=== PATIENT | male | born 1970 | race Caucasian/White ===

== ENCOUNTER 2020-06-16 12:48 | Outpatient (CLI) | payer OTHER, SELFPAY ==
--- NOTE | 2020-06-17 15:00 | NEURO_ITS ---
Patient Number: [id number] Impression: # Complains of numbness of hands. # Bilateral Carpal Tunnel Syndrome, right more than left. # Left ulnar neuropathy across the elbow. # Needle/EMG exam mildly neurogenic in left 1st DI. # Clinical correlation recommended Nerve Conduction Studies Anti Sensory Summary Table Stim Site NR Peak (ms) P-T Amp (?V) Site1 Site2 Delta-P (ms) Dist (cm) Ajay (m/s) Left Median Anti Sensory (2-3nd Digit) Wrist 3.5 47.0 Wrist 2-3nd Digit 3.5 14.0 40 Wrist 3.3 50.0 Wrist 2-3nd Digit 3.5 14.0 40 Right Median Anti Sensory (2-3nd Digit) Wrist 4.0 19.2 Wrist 2-3nd Digit 4.0 14.0 35 Wrist 4.2 30.4 Wrist 2-3nd Digit 4.0 14.0 35 Left Radial Anti Sensory (Base 1st Digit) Wrist 2.2 21.5 Wrist Base 1st Digit 2.2 0.0 Right Radial Anti Sensory (Base 1st Digit) Wrist 2.2 9.6 Wrist Base 1st Digit 2.2 0.0 Left Ulnar Anti Sensory (5th Digit) Wrist 3.1 59.8 Wrist 5th Digit 3.1 14.0 45 Right Ulnar Anti Sensory (5th Digit) Wrist 2.6 51.5 Wrist 5th Digit 2.6 14.0 54 Motor Summary Table Stim Site NR Onset (ms) O-P Amp (mV) Site1 Site2 Delta-0 (ms) Dist (cm) Ajay (m/s) Left Median Motor (Abd Poll Brev) Wrist 4.1 3.8 Elbow Wrist 5.3 30.0 57 Elbow 9.4 6.8 Right Median Motor (Abd Poll Brev) Wrist 4.8 1.8 Elbow Wrist 4.6 29.0 63 Elbow 9.4 2.1 Left Ulnar Motor (Abd Dig Minimi) Wrist 2.6 7.5 A Elbow Wrist 6.2 30.0 48 A Elbow 8.8 6.1 B Elbow Wrist 4.0 23.0 58 B Elbow 6.6 5.7 Right Ulnar Motor (Abd Dig Minimi) Wrist 2.7 5.6 A Elbow Wrist 5.1 30.0 59 A Elbow 7.8 3.8 F Wave Studies NR F-Lat (ms) L-R F-Lat (ms) Left Median (Mrkrs) (Abd Poll Brev) 30.27 0.44 Right Median (Mrkrs) (Abd Poll Brev) 29.82 0.44 Left Ulnar (Mrkrs) (Abd Dig Min) 29.69 1.29 Right Ulnar (Mrkrs) (Abd Dig Min) 28.41 1.29 EMG Side Muscle Nerve Root Ins Act Fibs Amp Dur Recrt Comment Right 1stDorInt Ulnar C8-T1 Nml Nml Nml Nml Nml Right Ext Indicis Radial (Post Int) C7-8 Nml Nml Nml Nml Nml Right Ext Digitorum Radial (Post Int) C7-8 Nml Nml Nml Nml Nml Right BrachioRad Radial C5-6 Nml Nml Nml Nml Nml Right PronatorTeres Median C6-7 Nml Nml Nml Nml Nml Right Abd Poll Brev Median C8-T1 Nml Nml Nml Nml Nml Left 1stDorInt Ulnar C8-T1 Nml Nml Nml >12ms Reduced Left Ext Indicis Radial (Post Int) C7-8 Nml Nml Nml Nml Nml Left Ext Digitorum Radial (Post Int) C7-8 Nml Nml Nml Nml Nml Left BrachioRad Radial C5-6 Nml Nml Nml Nml Nml Left PronatorTeres Median C6-7 Nml Nml Nml Nml Nml Left Abd Poll Brev Median C8-T1 Nml Nml Nml Nml Nml Right ABD Dig Min Ulnar C8-T1 Nml Nml Nml Nml Nml Right [place]coneus Radial C7-8 Nml Nml Nml Nml Nml Left ABD Dig Min Ulnar C8-T1 Nml Nml Nml Nml Nml Left Anconeus Radial C7-8 Nml Nml Nml Nml Nml MTDD
== END 2020-06-16 12:49 | disposition home or self-care (01) ==
PROVIDERS: PCP Internal Medicine; Visit Provider Internal Medicine
DX: G56.03 Carpal tunnel syndrome, bilateral upper limbs (principal); G56.22 Lesion of ulnar nerve, left upper limb
CPT/HCPCS: 95886; 95911

== ENCOUNTER 2022-07-13 16:25 | Outpatient (CLI) | payer OTHER, SELFPAY ==
--- NOTE | ~2022-07-13 | CT_ITS ---
EXAMINATION: CT brain wo con DATE: 07/13/2022 16:48 INDICATION: Headache and dizziness TECHNIQUE: Computed tomography (CT) of the head was performed without intravenous contrast. Sagittal and coronal reconstructions were performed. The mA was adjusted according to patient size. Iterative reconstruction technique was employed. The dose-length product was 605.33 mGy-cm. COMPARISON: None FINDINGS: No acute intracranial hemorrhage, acute infarction or abnormal extra axial fluid collection. Ventricl es are normal and symmetric. No mass/mass effect. Mucosal thickening the bilateral ethmoid sinuses. T he orbits and mastoid air cells are normal. IMPRESSION: 1. Normal brain. No acute intracranial process. Reviewed, dictated and finalized at location A.
== END 2022-07-13 16:26 | disposition home or self-care (01) ==
PROVIDERS: PCP Internal Medicine; Visit Provider Internal Medicine
DX: R51.9 Headache, unspecified (principal)
CPT/HCPCS: 70450

== ENCOUNTER 2024-09-21 00:04 | Day surgery (SDC) | payer OTHER, SELFPAY ==
[2024-09-14 10:54] VITALS: BMI 21.5
[2024-09-21 07:00] VITALS: BP 143/85; PULSE 81; RESP 20; TEMP 36.1; O2SAT 100; BMI 22.4
[2024-09-21] MEDS: LACTATED RINGERS 1,000 ML 150 ML IV CONT (07:02)
--- NOTE | 2024-09-21 07:46 | P.PNAN_ITS ---
Anes - Initial Pre Proc Eval Procedure: Operation Date: 09/21/24 08:00 Proposed Procedures p Esophagogastroduodenoscopy & Colonoscopy - David Pate MD Date/Time: 09/21/24 07:46 Surgeon: David Pate MD Pre Op Diagnosis: Family hx. of colon CA Patient Data Age: 54 Gender: M Height: 1.8 m Weight: 73.1 kg Last Vital Signs Temp 36.1 C L 09/21/24 07:00 Pulse 81 09/21/24 07:00 Resp 20 09/21/24 07:00 BP 143/85 H 09/21/24 07:00 Pulse Ox 100 09/21/24 07:00 O2 Del Method Room Air 09/21/24 07:00 Allergies Allergy/AdvReac Type Severity Reaction Status Date / Time No Known Allergies Allergy Verified 09/21/24 06:58 Home Medications Medication Instructions Recorded Confirmed Type propranolol 20 mg tablet 20 mg PO BID 09/14/24 09/21/24 History Patient hx anesthesia problems: none Family hx anesthesia problems: none Results Review: All pre-operative results and documents have been reviewed as part of the pre- operative evaluation. [facility] Social History Social History Smoking packs per day: 1 Smoking cigarettes per day: 20.0 Smoking status: Current every day smoker Tobacco type: cigarettes Alcohol intake: current Living arrangements: alone Spiritual care concerns: No Anes - Eval Final PreProcedure Day of Procedure 09/21/24 07:46 Patient weight: normal Heart: regular rate and rhythm Lungs: clear to auscultation and normal air movement Airway: Mallampati scale class II Neurological: alert and oriented Last oral intake: >/= 8 hours ASA classification: II Emergent: no Anesthetic plan: proceed Anesthesia type and monitoring: general GIVS and standard monitoring Results Review: All pre-operative results and documents have been reviewed as part of the pre- operative evaluation. Informed Consent: The patient's anesthetic plan and its attendant risks and benefits were discussed with the patient/family/POA. Questions were solicited and answers provided to the satisfaction of the patient/family/POA.
--- NOTE | 2024-09-21 07:52 | PM.HPGS ---
History of Present Illness History of Present Illness Consent: Risks, benefits, and alternatives have been discussed and questions answered. Patient agrees to proceed with procedure. Chief complaint: Family hx. of colon CA Narrative: Isai Hunt is a 54 year old male with colon polyp 5 years ago, also mother had stomach cancer, he had egd 5 years ago, denies active upper gi symptoms. Review of Systems Review of Systems: All systems reviewed & are unremarkable except as noted in HPI and below PMFSH Past Medical History Medical History (Updated 09/21/24 @ 07:53 by David Pate MD) Colon polyp Family history of stomach cancer Social History Social History Smoking packs per day: 1 Smoking cigarettes per day: 20.0 Smoking status: Current every day smoker Tobacco type: cigarettes Alcohol intake: current Living arrangements: alone Spiritual care concerns: No Meds Home Medications and Allergies Home Medications Medication Instructions Recorded Confirmed Type propranolol 20 mg tablet 20 mg PO BID 09/14/24 09/21/24 History Allergies Allergy/AdvReac Type Severity Reaction Status Date / Time No Known Allergies Allergy Verified 09/21/24 06:58 Vital Signs Vital Signs - 24 hr 09/21/24 07:00 Temperature 96.9 F L Pulse Rate 81 Respiratory Rate 20 Blood Pressure 143/85 H Pulse Oximetry 100 Oxygen Delivery Room Air Exam Const: General: comfortable and no acute distress HENMT: Face/Nose/Sinus: Normal nares present Eyes: General: appearance normal, both eyes and all related structures Neck: Neck: no JVD Resp: Auscultation: clear to auscultation bilaterally Cardio: Rate: regular rate Rhythm: regular rhythm GI: Inspection: non-distended GI Palp: Yes Soft to palpation Skin: General skin exam: normal color Neuro: General: gait normal Speech: normal speech Extrem: General: normal to inspection Psych: Mental Status: mental status grossly normal Assessment and Plan Assessment and plan (1) Family history of stomach cancer: Code(s): Z80.0 - Family history of malignant neoplasm of digestive organs Status: Acute Assessment and Plan: egd with bx (2) Colon polyp: Code(s): K63.5 - Polyp of colon Status: Acute Assessment and Plan: colonoscopy
[2024-09-21] MEDS: BENZOCAINE (*SP) 60 ML SPRAY CAN (HURRICAINE) 1 SPRAY MUCOUS MEM (07:53)
--- NOTE | 2024-09-21 08:02 | SUR.OPER ---
EGD start 075 end 075, Colonoscopy start 08
[2024-09-21 08:14] VITALS: BP 101/70; PULSE 65; RESP 17; O2SAT 98
[2024-09-21 08:24] VITALS: BP 109/71; PULSE 74; RESP 18; O2SAT 99
[2024-09-21 08:34] VITALS: BP 127/90; PULSE 70; RESP 15; O2SAT 100
== END 2024-09-21 08:41 | disposition home or self-care (01) ==
PROVIDERS: PCP Internal Medicine; Visit Provider Internal Medicine Gastroenterology
PROC: 0DJ08ZZ Inspection of Upper Intestinal Tract, Via Natural or Artificial Opening Endoscopic (ICD-10-PCS; CPT 43235; principal; 2024-09-21 08:00)
DX: Z12.11 Encounter for screening for malignant neoplasm of colon (principal); D12.5 Benign neoplasm of sigmoid colon; K64.8 Other hemorrhoids; K57.30 Diverticulosis of large intestine without perforation or abscess without bleeding; K29.50 Unspecified chronic gastritis without bleeding; F17.210 Nicotine dependence, cigarettes, uncomplicated; Z80.0 Family history of malignant neoplasm of digestive organs
CPT/HCPCS: 43239; 45385; 88305; J2003; J2704; J7120

== ENCOUNTER 2025-03-21 18:23 | Emergency (ER) | payer OTHER, SELFPAY ==
--- NOTE | ~2025-03-21 | XR_ITS ---
EXAMINATION: XR chest 2V Exam Date/Time: 03/21/2025 18:30 CDT HISTORY: cp Comparison: None. RESULT: Lines, tubes, and devices: None. Lungs and pleura: Mild biapical pleural scarring. Possible suture line at the right apex with small adjacent bulla. Elevation of the minor fissure and right hilum. No focal consolidation, pleural effus ion, or pneumothorax. Cardiomediastinal silhouette: Unremarkable. Other: No acute osseous or upper abdominal finding. IMPRESSION: No acute cardiopulmonary process. Reviewed, dictated and finalized at location K.
--- NOTE | 2025-03-21 18:24 | ECG_ITS ---
Test Date: 2025-03-21 18:28:35 Measurements Intervals [place] Rate: 81 P: 57 DC: 163 QRS: -9 QRSD: 105 T: 40 QT: 379 QTc: 442 Interpretive Statements SINUS RHYTHM POSSIBLE LEFT ATRIAL ENLARGEMENT [-0.1mV P-WAVE IN V1/V2] LOW QRS VOLTAGE IN PRECORDIAL LEADS [QRS DEFLECTION < 1.0 mV IN CHEST LEADS] INCOMPLETE RIGHT BUNDLE BRANCH BLOCK [90+ ms QRS DURATION, TERMINAL R IN V1/V2, 40+ ms S IN I/aVL/V4/V5/V6] MINIMAL ST DEPRESSION [0.025+ mV ST DEPRESSION] No previous ECG available for comparison Electronically Signed On 03-22-2025 06:54:15 CDT by Izzy Suarez M.D.
--- OUTSIDE RECORDS SUMMARY | 2025-03-21 18:24 | XMS_ITS | Data Portability ---
Author Organization [place] - [facility] [employer], Main Office Address [address] [place] [address] Care Team Providers Care Jet Aircraft Servicer Name Role Phone GAUTAM WEAVER Primary Care Provider Assessment No assessment recorded. Plan of Treatment Reminders Order Date Submit Date Provider Last Modified By Organization Details Last Modified Time Details Appointments None recorded. Lab magnesium , serum or plasma 024 024 [id number] [facility] - Outpatient Lab, [address] [place], [address], 4 09:42:28 vitamin B12, serum 024 024 [email or web address] [facility] Outpatient Lab, [address] [place], [address], 4 09:42:28 PSA, serum or plasma 024 024 [email or web address] [facility] - Outpatient Lab, [address] [place], [address], 4 09:42:28 CMP, serum or plasma 024 024 [email or web address] [facility] Outpatient Lab, [address] [place], [address], 4 09:42:27 CBC w/ auto diff 024 024 [id number] [facility] - Outpatient Lab, [address] [place], [address], 4 09:42:28 lipid panel, serum [id number] [place] [address] - Outpatient Lab, [address] [place], [address], 09:42:28 Referral None recorded. Procedures None recorded. Surgeries None recorded. Imaging None recorded. Medication Orders None recorded. Patient TargetsNo targets recorded. Patient Instructions Encounter Date Encounter Id Patient Instructions Last Modified By Organization Details Last Modified Time 03/30/2024 [id number] risk assessment* [email or web address] Not availabl e 03/30/2024 17:22:56 INFLUENZA VACCIN E Recommended today, but patient declined Ordered P atient will get at local pharmacy/health department TD/TDAP Recommended today, patient declined Ordered P atient will get at local pharmacy/health department PNEUMONIA VACCINE Ordered Recommende d today, patient declined Patient will get at local pharmacy/health department Recomme nded at age 65 SHINGLES Ordered Recommende d today, patient declined Patient will get at local pharmacy/health department PSA COLORECTAL SCREENING DEPRESSION SCREENING Negative BMI Overweight Appropr iate NUTRITION PHYSICAL ACTIVITY Need more exercise/physical activity ALCOHOL USE No alcohol use Occasional/Soc ial Use TOBACCO USE LUNG CANCER SCREENING SEXUALLY ACTIVE HEPATITIS C SCREENING Not indicated GLUCOSE SCREENING LIPID SCREENING [email or web address] Not available 03/30/2024 17:16:48 Well patient evaluation risk assessment stable. Follow-up for GERD clinically doing well on the omeprazole. Will check blood work consisting of CBC, CMP, lipid, B12, magnesium level and PSA. Does need a colonoscopy since there is a family history of some form of gastric cancer in the family mother of some form of gastric cancer. Will continue on current Rx and follow-up in one year. Colonoscopy for family history of gastric cancer Next Appointment: 1 Year Approximate Date: 03/30/2025 Portions of the record may have been created with voice recognition software. Occasional wrong-word or s ound-a-like substitutions may have occurred due to the inherent limitations of voice recognition software. Read the chart carefully and recognize, using context, where substitutions have occurred. [email or web address] Not available 03/30/2024 17:22:37 Reason for Referral None Reported. Results Created Date Observation Date Name Description Value Unit Range Abnormal Flag Note LastModifiedBy Organization Detail LastModifiedTime 04/23/20 24 04/23/2024 CBC/C OMPLE TE BLD COUNT W/DIF F white blood cells 7.6 x10'3 /uL 4.2-10 .8 Not Available [facility] (Lab) [address] [place], [address], 04/23/2024 10:18:40 04/23/20 24 04/23/2024 CBC/C OMPLE TE BLD COUNT W/DIF F red blood cells 4.59 x10'6 /uL 4.10-5 .80 Not Available [facility] (Lab) [address] [place], [address], 04/23/2024 10:18:40 04/23/20 24 04/23/2024 CBC/C OMPLE TE BLD COUNT W/DIF F hemoglobin 15.8 g/dL 13.2-1 7.0 Not Available [facility] (Lab) [address] [place], [address], 04/23/2024 10:18:40 04/23/20 24 04/23/2024 CBC/C OMPLE TE BLD COUNT W/DIF F hematocrit 44.8 % 39.3-5 0.0 Not Available [facility] (Lab) [address] [place], [address], 04/23/2024 10:18:40 04/23/20 24 04/23/2024 CBC/C OMPLE TE BLD COUNT W/DIF F mean red cell volume 97.6 fL 80.0-9 7.0 high Not Available [facility] (Lab) [address] [place], [address], 04/23/2024 10:18:40 04/23/20 24 04/23/2024 CBC/C OMPLE TE BLD COUNT W/DIF F mean red cell hemoglobin 34.4 pg 27.0-3 3.0 high Not Available [facility] (Lab) [address] [place], [address], 04/23/2024 10:18:40 04/23/20 24 04/23/2024 CBC/C OMPLE TE BLD COUNT W/DIF F mean RBC HGB concentratio n 35.3 g/dL 31.0-3 6.0 Not Available [facility] (Lab) [address] [place], [address], 04/23/2024 10:18:40 04/23/20 24 04/23/2024 CBC/C OMPLE TE BLD COUNT W/DIF F red cell distribution width 13.3 % 11.8-1 5.5 Not Available [facility] (Lab) [address] [place], [address], 04/23/2024 10:18:40 04/23/20 24 04/23/2024 CBC/C OMPLE TE BLD COUNT W/DIF F platelets 240 x10'3 /uL 150-40 0 Not Available [facility] (Lab) [address] [place], [address], 04/23/2024 10:18:40 04/23/20 24 04/23/2024 CBC/C OMPLE TE BLD COUNT W/DIF F mean platelet volume 10.4 fL 9.0-12 .4 Not Available [facility] (Lab) [address] [place], [address], 04/23/2024 10:18:40 04/23/20 24 04/23/2024 CBC/C OMPLE TE BLD COUNT W/DIF F neutrophils 65.9 % 39.0-7 2.0 Not Available [facility] (Lab) [address] [place], [address], 04/23/2024 10:18:40 04/23/20 24 04/23/2024 CBC/C OMPLE TE BLD COUNT W/DIF F lymphocytes 19.3 % 16.0-4 7.0 Not Available [facility] (Lab) [address] [place], [address], 04/23/2024 10:18:40 04/23/20 24 04/23/2024 CBC/C OMPLE TE BLD COUNT W/DIF F monocytes 10.0 % 5.0-12 .0 Not Available [facility] (Lab) [address] [place], [address], 04/23/2024 10:18:40 04/23/20 24 04/23/2024 CBC/C OMPLE TE BLD COUNT W/DIF F eosinophils 3.2 % 1.0-7. 0 Not Available [facility] (Lab) [address] [place], [address], 04/23/2024 10:18:40 04/23/20 24 04/23/2024 CBC/C OMPLE TE BLD COUNT W/DIF F basophils 0.9 % 0.0-2. 0 Not Available [facility] (Lab) [address] [place], [address], 04/23/2024 10:18:40 04/23/20 24 04/23/2024 CBC/C OMPLE TE BLD COUNT W/DIF F immature granulocytes 0.7 % 0.00-0 .50 high Not Available [facility] (Lab) [address] [place], [address], 04/23/2024 10:18:40 04/23/20 24 04/23/2024 CBC/C OMPLE TE BLD COUNT W/DIF F neutrophils, absolute count 4.99 x10'3 /uL 1.5-8. 0 Not Available [facility] (Lab) [address] [place], [address], 04/23/2024 10:18:40 04/23/20 24 04/23/2024 CBC/C OMPLE TE BLD COUNT W/DIF F lymphocytes, absolute count 1.46 x10'3 /uL 1.07-3 .43 Not Available [facility] (Lab) [address] [place], [address], 04/23/2024 10:18:40 04/23/20 24 04/23/2024 CBC/C OMPLE TE BLD COUNT W/DIF F monocytes, absolute count 0.76 x10'3 /uL 0.29-0 .99 Not Available [facility] (Lab) [address] [place], [address], 04/23/2024 10:18:40 04/23/20 24 04/23/2024 CBC/C OMPLE TE BLD COUNT W/DIF F eosinophils, absolute count 0.24 x10'3 /uL 0.02-0 .53 Not Available [facility] (Lab) [address] [place], [address], 04/23/2024 10:18:40 04/23/20 24 04/23/2024 CBC/C OMPLE TE BLD COUNT W/DIF F basophils, absolute count 0.07 x10'3 /uL 0.01-0 .08 Not Available [facility] (Lab) [address] [place], [address], 04/23/2024 10:18:40 04/23/20 24 04/23/2024 CBC/C OMPLE TE BLD COUNT W/DIF F immature granulocytes ,absolute 0.05 x10'3 /uL 0.00-0 .05 Not Available [facility] (Lab) [address] [place], [address], 04/23/2024 10:18:40 04/23/20 24 04/23/2024 CBC/C OMPLE TE BLD COUNT W/DIF F nucleated red blood cells 0.0 % -0 Not Available [facility] (Lab) [address] [place], [address], 04/23/2024 10:18:40 04/23/20 24 04/23/2024 CBC/C OMPLE TE BLD COUNT W/DIF F NRBC# 0.00 x10'3 /uL Not Available [facility] (Lab) [address] [place], [address], 04/23/2024 10:18:40 04/23/20 24 04/23/2024 COMPR EHENS BLAYNE METAB OLIC PANEL sodium 138 mmol/ L 137-14 5 Not Available [facility] (Lab) [address] [place], [address], 04/23/2024 10:28:59 04/23/20 24 04/23/2024 COMPR EHENS BLAYNE METAB OLIC PANEL potassium 4.8 mmol/ L 3.5-5. 1 Not Available [facility] (Lab) [address] [place], [address], 04/23/2024 10:28:59 04/23/20 24 04/23/2024 COMPR EHENS BLAYNE METAB OLIC PANEL chloride 106 mmol/ L 98-107 Not Available [facility] (Lab) [address] [place], [address], 04/23/2024 10:28:59 04/23/20 24 04/23/2024 COMPR EHENS BLAYNE METAB OLIC PANEL carbon dioxide 28 mmol/ L 22-30 Not Available [facility] (Lab) [address] [place], [address], 04/23/2024 10:28:59 04/23/20 24 04/23/2024 COMPR EHENS BLAYNE METAB OLIC PANEL anion gap 8.8 mmol/ L 14-22 low Not Available [facility] (Lab) [address] [place], [address], 04/23/2024 10:28:59 04/23/20 24 04/23/2024 COMPR EHENS BLAYNE METAB OLIC PANEL glucose 102 mg/dL 70-99 high Not Available [facility] (Lab) [address] [place], [address], 04/23/2024 10:28:59 04/23/20 24 04/23/2024 COMPR EHENS BLAYNE METAB OLIC PANEL BUN 11 mg/dL 8-19 Not Available [facility] (Lab) [address] [place], [address], 04/23/2024 10:28:59 04/23/20 24 04/23/2024 COMPR EHENS BLAYNE METAB OLIC PANEL creatinine 0.83 mg/dL 0.66-1 .25 Not Available [facility] (Lab) [address] [place], [address], 04/23/2024 10:28:59 04/23/20 24 04/23/2024 COMPR EHENS BLAYNE METAB OLIC PANEL GFR >60 Refer ence Range : [place] ge GFR Healt hy Adult : >60 mL/mi n/1.7 3 m2 Chron ic Kidne y Disea se: 15-60 mL/mi n/1.7 3 m2 Kidne y Failu re: <15/m L/min /1.73 m2 www.n iddk. nih.g ov The MDRD study equat ion has not been valid ated in child raquel <18 years of age; pregn ant women ; the elder ly >85 years of age; or in some racia l or ethni c subgr oups, such as Debi nics. Outsi de the valid ated piyush eters , estim ated GFR is less accur ate, requi ring clini wyatt judgm ent on a case- by-ca se basis . Clini wyatt inter preta tion for other races and ages must be made by the clini raymond. The MDRD study equat ion has not been valid ated for the evalu ation of serum creat inine relat ed to nutri alvarez l statu s or medic ation usage . For perso ns <18 years of age, a pedia tric GFR calcu lator is avail able on the F websi te: https ://mae w.yvette schmitty.o rg/pr ofess ional s/kdo qi/gf r_cal culat or Not Available [facility] (Lab) [address] [place], [address], 04/23/2024 10:28:59 04/23/20 24 04/23/2024 COMPR EHENS BLAYNE METAB OLIC PANEL alkaline phosphatase 91 U/L 38-126 Not Available [facility] (Lab) [address] [place], [address], 04/23/2024 10:28:59 04/23/20 24 04/23/2024 COMPR EHENS BLAYNE METAB OLIC PANEL alanine aminotransfe rase 28 U/L 0-50 Not Available [facility] (Lab) [address] [place], [address], 04/23/2024 10:28:59 04/23/20 24 04/23/2024 COMPR EHENS BLAYNE METAB OLIC PANEL aspartate aminotransfe rase 41 U/L 15-46 Not Available [facility] (Lab) [address] [place], [address], 04/23/2024 10:28:59 04/23/20 24 04/23/2024 COMPR EHENS BLAYNE METAB OLIC PANEL bilirubin, total 0.90 mg/dL 0.20-1 .30 Not Available [facility] (Lab) [address] [place], [address], 04/23/2024 10:28:59 04/23/20 24 04/23/2024 COMPR EHENS BLAYNE METAB OLIC PANEL calcium 9.7 mg/dL 8.4-10 .2 Not Available [facility] (Lab) [address] [place], [address], 04/23/2024 10:28:59 04/23/20 24 04/23/2024 COMPR EHENS BLAYNE METAB OLIC PANEL total protein 7.5 g/dL 6.3-8. 2 Not Available [facility] (Lab) [address] [place], [address], 04/23/2024 10:28:59 04/23/20 24 04/23/2024 COMPR EHENS BLAYNE METAB OLIC PANEL albumin 4.3 g/dL 3.4-5. 0 Not Available [facility] (Lab) [address] [place], [address], 04/23/2024 10:28:59 04/23/20 24 04/23/2024 COMPR EHENS BLAYNE METAB OLIC PANEL globulin 3.2 g/dL 2.6-4. 2 Not Available [facility] (Lab) [address] [place], [address], 04/23/2024 10:28:59 04/23/20 24 04/23/2024 COMPR EHENS BLAYNE METAB OLIC PANEL A/G ratio 1.3 ratio 1.0-2. 0 Not Available [facility] (Lab) [address] [place], [address], 04/23/2024 10:28:59 04/23/20 24 04/23/2024 LIPID PANEL cholesterol 214 mg/dL 140-19 9 high NIH ANNMARIE NSUS RECOM MENDA TION FOR HERMAN STERO L: ADULT CHILD LOW RISK: <200 <170 BORDE RLINE : <200- 239 ----- HIGH RISK: >240 >200 Not Available [facility] (Lab) [address] [place], [address], 04/23/2024 10:29:04 04/23/20 24 04/23/2024 LIPID PANEL triglyceride s 145 mg/dL 0-150 NIH ANNMARIE NSUS REPOR T RECOM MENDA TION FOR TRIGL YCERI GARETH: ADULT CHILD LOW RISK: <150 ----- BODER LINE: 150-1 99 ----- HIGH RISK: >200 ----- Not Available [facility] (Lab) [address] [place], [address], 04/23/2024 10:29:04 04/23/20 24 04/23/2024 LIPID PANEL HDL cholesterol 56 mg/dL 40- Not Available [facility] (Lab) [address] [place], [address], 04/23/2024 10:29:04 04/23/20 24 04/23/2024 LIPID PANEL LDL cholesterol, calculated 129 mg/dL 0-130 NIH ANNMARIE NSUS REPOR T RECOM MENDA TIONS FOR LDL: ADULT CHILD LOW RISK <130 <110 (OPTI MAL LDL) <100 ----- BORDE RLINE : 130-1 59 ----- HIGH RISK: >160 >130 A TRIGL YCERI DE RESUL T >400 INVAL IDATE S THE CALCU LATIO N FOR LDL FRACT IONAT ION - THE LDL RESUL T WILL NOT BE REPOR CASSANDRA. Not Available [facility] (Lab) [address] [place], [address], 04/23/2024 10:29:04 04/23/20 24 04/23/2024 MAGNE SIUM magnesium 2.3 mg/dL 1.6-2. 3 Not Available [facility] (Lab) [address] [place], [address], 04/23/2024 10:29:09 04/23/20 24 04/23/2024 PSA, TOTAL PSA, total 0.58 NG/mL 0.00-4 .00 Not Available [facility] (Lab) [address] [place], [address], 04/23/2024 11:01:32 04/23/20 24 04/23/2024 VITAM IN B12 (NEO BENTON ) vb12 528 pg/mL 239-93 1 Not Available [facility] (Lab) [address] [place], [address], 04/23/2024 11:28:39 07/04/20 22 04/04/2015 colon oscop y scree jessica (PROC ) No observ ation record ed. [id number] Not Available 01/16/2023 08:14:18 Result Notes None recorded. Problems Name Problem SNOMED Code Status Onset Date Resolution Date Notes Provider Name and Address Organization Details Recorded Time Generaliz ed headache 437424350 Active Not Available [facility] 3 08:09:30 Dupuytren 's disease of palm 339020478 Active 2017 Not Available [facility] 3 08:09:30 Gastroeso phageal reflux disease 755285638 Active Not Available [facility] 3 08:09:30 Headache 81670246 Active Not Available [facility] 3 08:09:30 Carpal tunnel syndrome of left wrist 98250559351 9102 Completed 201904/22/2020 Not Available [facility] 3 08:09:30 Disorder of prostate 99145221 Active 2021 Not Available [facility] 3 08:09:30 Dysphagia 73119843 Active 2021 Not Available [facility] 3 08:09:30 Carpal tunnel syndrome 03203099 Active 2017 Not Available [facility] 3 08:09:30 Hemoptysi s 00835097 Active Not Available [facility] 3 08:09:30 Sleep apnea 01978289 Active 2021 Not Available [facility] 3 08:09:30 Obstructi ve sleep apnea syndrome 71784419 Active 2021 Not Available [facility] 3 08:09:30 Breast lump 39443594 Active Not Available [facility] 3 08:09:31 Dental abscess 001736436 Active 2023 Gautam Weaver MD [address] [place] [address] [address], [place], [address] , [facility] [employer] 4 14:38:14 Tremor 32006302 Active 2023 Mabel Jose CMA [facility], [facility] 4 14:18:59 Problem Notes None recorded. Procedures Surgical History None recorded. Imaging Results Imaging Date Name Status LastModified by Organiz ation Details LastModified Time 04/04/2015 colonoscopy screening (PROC) completed [id number] Information not available 01/16/2023 08:14:18 Procedure Notes None recorded. Medical Equipment None Reported. Medications Name Sig Start Date Stop Date Status Note LastModified by Organization Details LastModified Time amoxicillin 500 mg capsule Take 1 capsule 3 times a day by oral route for 10 days. 05/14 completed Not Available Not Available Not Available Zithromax Z-Lincoln 250 mg tablet TAKE 2 TABLETS (500 MG) BY ORAL ROUTE ONCE DAILY FOR 1 DAY THEN 1 TABLET (250 MG) BY ORAL ROUTE ONCE DAILY FOR 4 DAYS 07/03 completed Not Available Not Available Not Available Mobic 15 mg tablet Take 1 tablet every day by oral route. active Not Available Not Available No t Available benzonatate 100 mg capsule TAKE 1 CAPSULE BY MOUTH THREE TIMES DAILY NEEDED FOR COUGH 07/03 completed Not Available Not Available Not Available omeprazole 20 mg capsule,del ayed release Take 1 capsule every day by oral route. active Not Available Not Available No t Available methylpredn isolone 4 mg tablets in a dose pack Take by oral route as directed 04/22 completed Not Available Not Available Not Available albuterol sulfate HFA 90 mcg/actuati on aerosol inhaler INHALE 2 PUFFS BY MOUTH EVERY 4 HOURS NEEDED FOR DIFFICULT BREATHING 07/03 completed Not Available Not Available Not Available ondansetron 4 mg disintegrat ing tablet DISSOLVE 1 TABLET ON THE TONGUE EVERY 8 HOURS NEEDED FOR NAUSEA 07/03 completed Not Available Not Available Not Available amoxicillin 875 mg-potassiu m clavulanate 125 mg tablet TAKE 1 TABLET BY MOUTH EVERY 12 HOURS 03/30 completed Not Available Not Available Not Available Mucinex 600 mg tablet, extended release Take 1 tablet every 12 hours by oral route. active Not Available Not Available No t Available Vitals Date Recorded Body mass index (BMI) Body height Oxygen saturation Oxygen saturation in Arterial blood by Pulse oximetry Heart rate Body temperature Body weight Systolic blood pressure Diastolic blood pressure Provider Name and Address Organization Details Last Updated DateTime 2 23.3 kg/m2 182.88 cm 94 % 94 % 82 /min 96.7 [degF] 36392.8 9 g 150 mm[Hg] 80 mm[Hg] Not Available [facility] 3 08:06:52 Date Recorded Body mass index (BMI) Body height Oxygen saturation Oxygen saturation in Arterial blood by Pulse oximetry Heart rate Respiratory rate Body temperature Body weight Systolic blood pressure Diastolic blood pressure Provider Name and Address Organization Details Last Updated DateTime 2 22.4 kg/m2 182.88 cm 97 % 97 % 84 /min 12 /min 97.2 [degF] 06628.7 4 g 134 mm[Hg] 86 mm[Hg] Not Available [facility] 3 08:06:52 Date Recorded Body height Body mass index (BMI) Body weight Heart rate Body temperature Oxygen saturation Oxygen saturation in Arterial blood by Pulse oximetry Systolic blood pressure Diastolic blood pressure Provider Name and Address Organization Details Last Updated DateTime 4 182.88 cm 22.8 kg/m2 53154.5 2 g 80 /min 98.1 [degF] 98 % 98 % 126 mm[Hg] 82 mm[Hg] JOSE ANTONIO Longo [place] - [facility] [employer] 4 17:11:38 Social History None recorded. Functional Status None recorded. Mental Status None recorded. Family History Nothing Reported Notes:Father living at 76 HD, CABG and stents. Mother 68 gastric cancer Has one brother with Diabetes Type I Maternal GF age 76, hx of throat cancer Medical History Condition Response NERVE DISEASE N BLINDNESS N RHEUMATIC FEVER N KIDNEY STONES N BLADDER PROBLEMS N MRSA N OTHER # 1 N POLIO N LUNG DISEASE/DISORDER N COPD N RADIATION / CHEMOTHERAPY N Other # 2 N BLOOD DISEASES N SURGERY N EAR OR HEARING PROBLEMS N MUMPS N DEPRESSION (INCLUDING POST ) N BOWEL PROBLEMS N STROKE/TIA N ULCERS N BENIGN PROSTATIC HYPERPLASIA N MEASLES N MYOCARDIAL INFARCTION N OBESITY N GERD/NAUSEA Y ANEURYSM N URINARY/BLADDER/KIDNEY PROBLEMS N CORONARY ARTERY DISEASE (CAD) N ADDICTION CONCERNS N Impotence N ENDOMETRIOSIS N USE OF BLOOD THINNERS N SKIN PROBLEMS N GASTROINTESTINAL DISORDER N PERIPHERAL VASCULAR DISEASE N MUSCLE,JOINT OR BONE PROBLEMS Y GASTROINTESTINAL BLEEDING N BLOOD CLOTS N ASTHMA N CATARACTS N ERECTILE DYSFUNCTION N VARICOSITIES N GI PROBLEMS N Low Testosterone N INFERTILITY N AIDS/HIV N CHEMOTHERAPY / RADIATION N LIVER DISEASE N MALE HYPOGONADISM N HYPERTENSION N Deficiency N ANXIETY DISORDER N BLOOD TRANSFUSION N ANEMIA/BLOOD DISORDER N CHRONIC EAR INFECTIONS N BRONCHITIS N TUBERCULOSIS N GLAUCOMA N FOOT PROBLEM N DIVERTICULITIS N SLEEP APNEA N CHICKENPOX N INFECTIOUS DISEASE N PROSTATE N HEART ARRHYTHMIA N INSOMNIA N HIGH CHOLESTEROL / HYPERLIPIDEMIA N EYE PROBLEMS N HYPERTHYROIDISM N NEUROLOGICAL PROBLEMS N EDEMA N CHRONIC PAIN SYNDROME N HYPOTHYROIDISM N CAROTID BLOCKAGE N CONSTIPATION N BACK / NECK PROBLEMS N HAVE YOU BEEN HOSPITALIZED OR SEEN IN [facility] IN THE PAST YEAR ? N ATHEROSCLEROSIS N BREAST PROBLEMS Y DIALYSIS N ECZEMA N OSTEOPOROSIS N ARTHRITIS N NO SIGNIFICANT PAST MEDICAL HISTORY N APPENDICITIS N DIABETES, TYPE N BAD TEETH N ENT N HEARTBURN / REFLUX N AUTISM SPECTRUM DISORDER (ASD) N HEPATITIS / LIVER DISEASE N GOUT N SLEEP DISORDER N ALZHEIMER'S DISEASE N Brain Problems N DEMENTIA N HERPES N SEIZURES/EPILEPSY N HEADACHES/MIGRAINES Y VASCULAR DISEASE N PACEMAKER N Blood Disorder N DIZZINESS N HEART DISEASE/HEART PROBLEMS N KIDNEY DISEASE N MULTIPLE SCLEROSIS N CANCER: SPECIFY N CARDIAC ARRHYTHMIA N ATRIAL FIBRILLATION N Gall Stones N PULMONARY EMBOLISM N AUTOIMMUNE DISEASE N Past Encounters Encounter ID Performer Location Encounter Start Date Encounter Closed Date Diagnosis/Indication Diagnosis SNOMED-CT Code Diagnosis ICD10 Code Diagnosis Note [id number] Gautam Weaver MD [facility] Internal Med [facility] [address] [facility] [place] [facility] [place] [address] 07/03/2022 00:00:00 07/03/2022 17:02:37 [id number] [facility] Internal Med [facility] [address] [place] [id number] 07/30/2022 00:00:00 07/30/2022 17:03:[id number] [facility] Internal [place] [address] [place] [id number] 03/30/2024 17:06:10 03/30/2024 17:35:22 Adult health examination 406684572 Z00.00 Depression screening 171 858303 Z13.31 Gastroesop hageal reflux disease 052744876 K21.9 Disorder of prostate 302 04155 N42.9 Health Concerns Section Related Observation LastModified by Organization Detai ls LastModified Time None Recorded Concern Status LastModified by Organization Details LastModified Time None Recorded Advance Directives Directive None Recorded Payers Encounter Date Sequence Insurance Name Policy Number Policy Palma Covered Member ID Palma Member ID Guarantor Name 03/30/2024 1 [facility] Isai Hunt [id number] Isai Hunt
--- OUTSIDE RECORDS SUMMARY | 2025-03-21 18:24 | XMS_ITS | CONTINUITY OF CARE DOCUMENT ---
Author Name joi tamez Address Unknown Organization [facility] Address [address] [place] [address] Phone [phone] Care Team Providers Care Financial Services Agent Name Role Phone Carlos SNYDER, Terence Unavailable GAUTAM BEYER MD Unavailable GAUTAM BEYER MD Unavailable PROBLEMS Condition Status Date Provider Notes CHEST PAIN- RECURRENT active Terence Gonzalez MD TOBACCO ABUSE active ? Terence Gonzalez MD SHORTNESS OF BREATH active Terence Hare CORONARY ARTERY DISEASE, FAMILY HX active Ritchie Gonzalez MD ENCOUNTERS Date Type Provider Location Encounter Diag nosis - In-person encounter Office Visit Terence Gonzalez MD [facility] CHEST PAIN- RECURRENTTOBACCO ABUSESHORTNESS OF BREATHCORONARY ARTERY DISEASE, FAMILY HX VITAL SIGNS Date Observation Value Provider blood pressure, diastolic 82 mm[Hg] Adame blood pressure, systolic 122 mm[Hg] Tamir Freed pulse rate 88 /min Suraj Freed oxygen saturation, oximetry 98 % Suraj Freed respiratory rate E&M 16 /min Suraj Freed weight E&M 183 [lb_av] Suraj Freed ALLERGIES No Known Drug Allergies RESULTS Date Observation Value Provider Reference Range Interpretation Location 4 PTT patient 30.8 s Ondina Lieberman 4 prothrombin time (patient) 10.1 s Ondina Lieberman 4 international normalized ratio (INR) >1.0 Ondina Lieberman 5 anion gap, serum 10.4 [facility] estimated glomerular filtration rate >60 [facility] 5 calcium, serum 9.0 mg/dL anatoly Mio 5 blood glucose, fasting 93 mg/dL [facility] creatinine, serum 1.11 mg/dL [facility] urea nitrogen, blood 11.4 mg/dL [facility] carbon dioxide, serum, total 27 mmol/L [facility] chloride, serum 103 mmol/L [facility] potassium, serum 4.4 mmol/L [facility] 5 sodium, serum 136 mmol/L [facility] platelet count 243 10*3/uL [facility] red blood cell distribution width 13.6 % [facility] mean corpuscular hemoglobin concentration, RBC 34.3 g/dL anatoly Mio mean corpuscular hemoglobin, RBC [facility] mean corpuscular volume, RBC 93.6 fL [facility] hematocrit, blood 45.5 % [facility] hemoglobin, blood 15.6 g/dL [facility] erythrocyte (RBC) count 4.86 10*6/mm3 [facility] monocytes as percent of blood leukocytes 13.4 % [facility] lymphocytes as percent of blood leukocytes 19.3 % [facility] leukocyte count, blood 8.2 10*3/mm3 [facility] HISTORY OF MEDICATION USE Medication Status Instructions Dates Provider Indications Com ments METOPROLOL SUCCINATE ER 25 MG ORAL TABLET EXTENDED RELEASE 24 HOUR active po once daily Terence Gonzalez MD NITROSTAT 0.4 MG SUBLINGUAL TABLET SUBLINGUAL active prn for chest pain Terence Gonzalez MD SOCIAL HISTORY Date Observation Value Provider social history E&M L daisy alone E thnicity: Ha Cantu RN social history reviewed E&M reviewed Ha Cantu RN physical exercise, f requency, days per week no LinkLogic caffeine use, averag e drinks per day no LinkLogic alcohol use, average drinks per day 1-3 drinks per day [employer]Logic number of years as a smoker 10 years or m ore LinkLog smoking status Smoker [facility] MENTAL STATUS Date Observation Value Provider assessment of judgme nt and insight E&M Alert and oriented to time, place and person. Mood and affect are normal. Ha Cantu RN INSURANCE PROVIDERS Payer name Policy type / Coverage type [place] red libertarian ID [employer] OPEN ACCESS Other [id number] TREATMENT PLAN Date Name Spirometry T3, TOTAL T-4, FREE TSH, 3RD GENERATION COMPREHENSIVE METABO LIC PANEL W/EGFR LIPID PANEL Cardiac Cath - Left - GC
--- OUTSIDE RECORDS SUMMARY | 2025-03-21 18:24 | XMS_ITS | Clinical Summary ---
Author Organization [facility] Care Team Providers Care Metal Cutter Name Role Phone Unavailable Primary Care Provider Unavailabl e Social History Tobacco Use Types Packs/Day Years Used Date Smoking Tobacco: Never Assessed Sex and Gender Information Value Date Recorded Sex Assigned at Not on file Legal Sex Male 7:10 PM CDT Gender Identity Not on file Sexual Orientation Not on file Plan of Treatment Not on file
--- OUTSIDE RECORDS SUMMARY | 2025-03-21 18:24 | XMS_ITS | Referral Summary ---
Author Organization [facility] Address [address] [place] [id number] Care Team Providers Care Telephone Order Clerk Name Role Phone Fidel Weaver MD Primary Care Provider Allergies No known active allergies Medications omeprazole (PriLOSEC) 20 mg capsule Take 1 capsule every day by oral route. Active propranolol LA (INDERAL LA) 60 mg 24 hr capsule Take 1 capsule (60 mg total) by mouth daily 30 capsule 11 10/29/2024 Active Active Problems No known active problems Social History Tobacco Use Types Packs/Day Years Used Date Smoking Tobacco: Every Day Cigarettes 1 15 Passive Smoke Exposure: Current Smokeless Tobacco: Never Tobacco Cessation:Ready to Q uit: Not Asked; Counseling Given: Not Answered AUDIT-C Answer Date Recorded Q1: How often do you have a drink containing alc ohol? 2-4 times a month 07/23/2024 Q2: How many drinks containi ng alcohol do you have on a typical day when you are drinking? 3 or 4 07/23/2024 Q3: How often do you have si x or more drinks on one occasion? 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 Gender Identity Not on file Sexual Orientation Not on file Last Filed Vital Signs Vital Sign Reading Time Taken Comments Blood Pressure 120/80 10/29/2024 3:59 PM MAILING MACHINE OPERATOR Pulse 73 10/29/2024 3:59 PM MAILING MACHINE OPERATOR Temperature - - Respiratory Rate - - Oxygen Saturation 98% 10/29/2024 3:59 PM MAILING MACHINE OPERATOR Inhaled Oxygen Concentration - - Weight 68.9 kg (152 lb) 10/29/2024 3:59 PM MAILING MACHINE OPERATOR Height 180.3 cm (5' 11 ) 10/29/2024 3:59 PM MAILING MACHINE OPERATOR Body Mass Index 21.2 10/29/2024 3:59 PM MAILING MACHINE OPERATOR Plan of Treatment Not on file Insurance [employer] Member Subscriber Plan / Payer (Ef fective 2024-Present) Name:Isai Hunt V Relation to Subscriber:Self Name:Isai Hunt V Payer ID:[id number] (NAIC) Group ID:[id number] Type:[employer]! HMO/PPO Address: [facility] [address] [place] [address] Care Teams Telephone Order Clerk Relationship Specialty Start Date End Date Fidel Weaver MD [address] [place] [address] PCP - General Internal Medicine 07/10/24
--- OUTSIDE RECORDS SUMMARY | 2025-03-21 18:24 | XMS_ITS | Clinical Summary ---
Author Organization [facility] Address [address] [place] [id number] Care Team Providers Care Health Information Systems Technician Name Role Phone Fidel Weaver MD Primary [...] on file Legal Sex Male 9:26 AM PLANT SCIENCES PROFESSOR Gender Identity Not on file Sexual Orientation Not on file Obstetrics History Last Filed Vital Signs Vital Sign Reading Time Taken Comments Blood Pressure 120/80 10/29/2024 3:59 PM PLANT SCIENCES PROFESSOR Pulse 73 10/29/2024 3:59 PM PLANT SCIENCES PROFESSOR Temperature - - Respiratory Rate - - Oxygen Saturation 98% 10/29/2024 3:59 PM PLANT SCIENCES PROFESSOR Inhaled Oxygen Concentration - - Weight 68.9 kg (152 lb) 10/29/2024 3:59 PM PLANT SCIENCES PROFESSOR Height 180.3 cm (5' 11 ) 10/29/2024 3:59 PM PLANT SCIENCES PROFESSOR Body Mass Index 21.2 10/29/2024 3:59 PM PLANT SCIENCES PROFESSOR Plan of Treatment Health Maintenance Due Date Last Done Comments Colon Cancer Screening-Colonoscopy 1970 Depression Screening 1970 Hepatitis C Screening 1970 Prostate Cancer Screening-PSA 1970 DTaP/Tdap/Td Vaccine (1 - Tdap) 1981 Hepatitis B Screening 1988 Regular Well Visit/Exam 18-64 1988 Pneumococcal vaccine <65 (1 of 2 - PCV) 1989 Zoster Vaccine (1 of 2) 2020 Covid-19 Vaccine ( season) 2024 01/28/2022, 05/05/2021, 04/05/2021 Influenza Vaccine (Season Ended) 2025 Insurance [employer] Member Subscriber Plan / Payer (Ef fective 2024-Present) Name:Isai Hunt V Relation to Subscriber:Self Name:Isai Hunt V Payer ID:[id number] (NAIC) Group ID:[id number] Type:[employer] HMO/PPO Address: [facility] [address] [place] [address] Care Teams Health Information Systems Technician Relationship Specialty Start Date End Date Fidel Weaver MD [address] [place] [address] PCP - General Internal Medicine 07/10/24
[2025-03-21 18:25] VITALS: BP 151/93; PULSE 79; RESP 20; TEMP 36.6; O2SAT 100
[2025-03-21 18:46] LABS: Basophils Absolute Auto 0.1 K/mm3 (0.0-0.1); Basophils Percent Auto 1.4 % (0.2-1.2); Eosinophils Absolute Auto 0.4 K/mm3 (0-0.3); Eosinophils Percent Auto 4.6 % (0-4.4); Hematocrit 47.8 % (42.0-52.0); Immature Granulocyte Absolute 0.03 K/mm3 (0.00-0.031); Immature Granulocyte Percent A 0.4 % (0-0.5); Lymphocytes Absolute Auto 1.43 K/mm3 (0.9-3.2); Lymphocytes Percent Auto 18.8 % (18.3-44.2); Mean Corpuscular HGB Conc 33.5 g/dl (32-36); Mean Corpuscular Volume 98.6 fl (80-100); Mean Platelet Volume 9.6 fl (7.4-10.4); Monocytes Absolute Auto 0.7 K/mm3 (0.1-0.6); Monocytes Percent Auto 9.3 % (2.6-8.5); Neutrophils Percent Auto 65.5 % (45.5-73.1); Platelet Count Result 253 k/mm3 (150-375); Red Blood Count 4.85 M/mm3 (4.6-6.20); Red Cell Distribution Width 13.1 % (11.5-14.5); White Blood Count 7.6 K/mm3 (4.5-10.0)
[2025-03-21 18:51] LABS: Alanine Aminotransferase 28 U/L (6-50); Albumin Level 4.8 g/dL (3.5-5.1); Alkaline Phosphatase 96 U/L (38-126); Anion Gap 9 mmol/L (4-12); Aspartate Amino Transferase 38 U/L (17-59); Bilirubin,Total 0.5 mg/dL (0.2-1.3); Blood Urea Nitrogen 9 mg/dL (9-20); Calcium 9.1 mg/dL (8.4-10.2); Carbon Dioxide 28 mmol/L (22-30); Chloride 100 mmol/L (98-107); Estimated Glomerular Filt Rate > 60; Glucose 132 mg/dL (65-110); Lipase 81 U/L (23-300); Potassium 4.3 mmol/L (3.4-5.0); Sodium 137 mmol/L (137-145)
[2025-03-21 19:03] LABS: Troponin I < 0.012 ng/mL (0.000-0.034)
[2025-03-21 19:16] LABS: INR 0.9; Prothrombin Time 12.9 Seconds (11.1-14.7)
[2025-03-21 19:18] LABS: Partial Thromboplastin Time 27.9 Seconds (22.3-36.8)
--- OUTSIDE RECORDS SUMMARY | 2025-03-21 20:10 | XMS_ITS | Clinical Summary ---
Author Organization [facility] Address [address] [place] [phone] Care Team Providers Care Physical Chemistry Teacher Name Role Phone Fidel Weaver MD Primary [...] on file Legal Sex Male 9:26 AM TRACING LATHE SET UP OPERATOR Gender Identity Not on file Sexual Orientation Not on file Obstetrics History Last Filed Vital Signs Vital Sign Reading Time Taken Comments Blood Pressure 120/80 10/29/2024 3:59 PM TRACING LATHE SET UP OPERATOR Pulse 73 10/29/2024 3:59 PM TRACING LATHE SET UP OPERATOR Temperature - - Respiratory Rate - - Oxygen Saturation 98% 10/29/2024 3:59 PM TRACING LATHE SET UP OPERATOR Inhaled Oxygen Concentration - - Weight 68.9 kg (152 lb) 10/29/2024 3:59 PM TRACING LATHE SET UP OPERATOR Height 180.3 cm (5' 11 ) 10/29/2024 3:59 PM TRACING LATHE SET UP OPERATOR Body Mass Index 21.2 10/29/2024 3:59 PM TRACING LATHE SET UP OPERATOR Plan of Treatment Health Maintenance Due Date [...] 04/05/2021 Influenza Vaccine (Season Ended) 2025 Insurance [employer] HEALTHCARE Member Subscriber Plan / Payer (Ef fective 2024-Present) Name:sIai Hunt V Relation to Subscriber:Self Name:Isai Hunt V Payer ID:[id number] (NAIC) Group ID:[id number] Type:[employer] HMO/PPO Address: [facility] [address] [place] [address] Care Teams Physical Chemistry Teacher Relationship Specialty Start Date End Date Fidel Weaver MD [address] [place] [address] PCP - General Internal Medicine 07/10/24
--- OUTSIDE RECORDS SUMMARY | 2025-03-21 20:10 | XMS_ITS | Clinical Summary ---
Author Organization [facility] Care Team Providers Care Cage Operator Name Role Phone Unavailable Primary Care Provider [...]
--- OUTSIDE RECORDS SUMMARY | 2025-03-21 20:10 | XMS_ITS | CONTINUITY OF CARE DOCUMENT ---
Author Name joi tamez Address Unknown Organization [facility] Address [address] [place] [address] Phone [phone] Care Team Providers Care Ladies' Locker Room Attendant Name Role Phone Carlos SNYDER, Terence Unavailable [phone] GAUTAM BEYER MD Unavailable [phone] GAUTAM BEYER MD Unavailable [phone] PROBLEMS Condition Status Date Provider Notes CHEST PAIN- RECURRENT active Terence Gonzalez MD TOBACCO ABUSE active ? Terence Gonzalez MD SHORTNESS OF BREATH active Terence Hare CORONARY ARTERY DISEASE, FAMILY HX active Ritchie Gonzalez MD ENCOUNTERS Date Type Provider Location Encounter Diag nosis - In-person encounter Office Visit Terence Gonzalez MD [facility] CHEST PAIN- RECURRENTTOBACCO ABUSESHORTNESS OF BREATHCORONARY [...] Lieberman 5 anion gap, serum 10.4 [facility] estimated glomerular filtration rate >60 [facility] 5 calcium, serum 9.0 mg/dL anatoly Mio 5 blood glucose, fasting 93 mg/dL [facility] creatinine, serum 1.11 mg/dL [facility] urea nitrogen, blood 11.4 mg/dL [facility] carbon dioxide, serum, total 27 mmol/L [facility] chloride, serum 103 mmol/L [facility] potassium, serum 4.4 mmol/L [facility] 5 sodium, serum 136 mmol/L [facility] platelet count 243 10*3/uL [facility] red blood cell distribution width 13.6 % [facility] mean corpuscular hemoglobin concentration, RBC 34.3 g/dL anatoly Mio mean corpuscular hemoglobin, RBC 32.[facility] mean corpuscular volume, RBC 93.6 fL [facility] hematocrit, blood 45.5 % [facility] hemoglobin, blood 15.6 g/dL [facility] erythrocyte (RBC) count 4.86 10*6/mm3 [facility] monocytes as percent of blood leukocytes 13.4 % [facility] lymphocytes as percent of blood leukocytes 19.3 % [facility] leukocyte count, blood 8.2 10*3/mm3 [facility] HISTORY OF MEDICATION USE Medication Status [...] or m ore LinkLog smoking status Smoker [facility] MENTAL STATUS Date Observation Value Provider assessment of judgme nt and insight E&M Alert and oriented to time, place and person. Mood and affect are normal. Ha Cantu RN INSURANCE PROVIDERS Payer name Policy type / Coverage type [place] red green party ID [employer] OPEN ACCESS Other [id number] TREATMENT PLAN Date Name Spirometry T3, TOTAL T-4, FREE TSH, 3RD GENERATION COMPREHENSIVE METABO LIC PANEL W/EGFR LIPID PANEL Cardiac Cath - Left - GC
--- OUTSIDE RECORDS SUMMARY | 2025-03-21 20:10 | XMS_ITS | Referral Summary ---
Author Organization [facility] Address [address] [place] [phone] Care Team Providers Care Applied Mathematician Name Role Phone Fidel Weaver MD Primary [...] on file Legal Sex Male 9:26 AM BRUSH CUTTER Gender Identity Not on file Sexual Orientation Not on file Last Filed Vital Signs Vital Sign Reading Time Taken Comments Blood Pressure 120/80 10/29/2024 3:59 PM BRUSH CUTTER Pulse 73 10/29/2024 3:59 PM BRUSH CUTTER Temperature - - Respiratory Rate - - Oxygen Saturation 98% 10/29/2024 3:59 PM BRUSH CUTTER Inhaled Oxygen Concentration - - Weight 68.9 kg (152 lb) 10/29/2024 3:59 PM BRUSH CUTTER Height 180.3 cm (5' 11 ) 10/29/2024 3:59 PM BRUSH CUTTER Body Mass Index 21.2 10/29/2024 3:59 PM BRUSH CUTTER Plan of Treatment Not on file Insurance [employer] Member Subscriber Plan / Payer (Ef fective 2024-Present) Name:Isai Hunt V Relation to Subscriber:Self Name:Isai Hunt V Payer ID:[id number] (NAIC) Group ID:[id number] Type:[employer] HMO/PPO Address: [facility] [address] [place] [address] Care Teams Applied Mathematician Relationship Specialty Start Date End Date Fidel Weaver MD [address] [facility] [place] [address] PCP - General Internal Medicine 07/10/24
[2025-03-21 20:11] VITALS: O2SAT 100
[2025-03-21 20:12] VITALS: BP 143/92; PULSE 84; RESP 22; O2SAT 100
[2025-03-21] MEDS: ASPIRIN 81 MG CHEWABLE TABLET 324 MG PO (20:13)
--- NOTE | 2025-03-21 20:44 | ED_ITS ---
HPI - Chest Pain General Chief Complaint: Chest Pain Stated Complaint: Chest pain Time Seen by Provider: 03/21/25 19:59 Source: patient Mode of arrival: ambulatory Limitations: no limitations History of Present Illness HPI narrative: Patient is a 54 y/o male who presents to the ED with c/o CP. Patient reports he developed left-sided chest pain around 2:00 p.m. today. Reports pain present in L sided chest. Denied radiation of pain to arm, back, neck, jaw, but did report some tingling in his LUE. States pain was improved with walking around, worse with sitting. Pain lasted for approx 1 hour before improving. Reports very slight discomfort in chest currently with persistent tingling in L arm. He mentions he has pain over the past couple weeks which has always come and gone without intervention. He has never had the tingling in his arm which prompted his presentation today. Denies SOB, nausea, diaphoresis, recent cough or cold sx's, fevers, pain or swelling in legs. Patient is a smoker. Reports family history of heart disease. Denies history of HTN, HLD, DM. Related Data Home Medications ?Medication ?Instructions ?Recorded ?Confirmed ?Last Taken ?Type propranolol 20 mg tablet 20 mg PO BID 09/14/24 09/21/24 09/19/24 History Allergies Allergy/AdvReac Type Severity Reaction Status Date / Time No Known Allergies Allergy Verified 09/21/24 06:58 Review of Systems 2 Review of Systems: All systems reviewed & are unremarkable except as noted in HPI. All systems reviewed & are unremarkable except as noted in HPI and below PMFSH Past Medical History Medical History Colon polyp Family history of stomach cancer Social History Social History Smoking packs per day: 1 Smoking cigarettes per day: 20.0 Smoking status: Current every day smoker Tobacco type: cigarettes Alcohol intake: current Living arrangements: alone Spiritual care concerns: No Exam 2 Narrative: GENERAL: Appears older than stated age, well-nourished, non-toxic, in no acute distress. HEAD: Normocephalic, atraumatic. RESPIRATORY: Airway patent, respirations nonlabored. Clear to auscultation bilaterally, no rales, rhonchi, wheezing. No focal lung sounds. CARDIOVASCULAR: Regular rate and rhythm without murmurs, rubs, or gallops. ABDOMINAL: Soft, nontender, nondistended. Normoactive BS. MUSCULOSKELETAL: Moves all extremities. No gross deformities. No peripheral edema. No calf tenderness. No chest wall tenderness to palpation. No pain throughout left upper extremity. Sensation intact throughout left upper extremity. SKIN: Warm, dry, normal color. NEURO: A&O X3. Speech clear. PSYCHIATRIC: Appropriate mood and affect. Normal interaction. Course Vital Signs Vital signs: Vital Signs Temperature 97.9 F 03/21/25 18:25 Pulse Rate 79 03/21/25 18: Respiratory Rate 20 03/21/25 18: Blood Pressure 151/93 H 03/21/25 18:25 Pulse Oximetry 100 03/21/25 18:25 Oxygen Delivery Room Air 03/21/25 18:25 Temperature 97.9 F 03/21/25 23:35 Pulse Rate 73 03/21/25 23:35 Respiratory Rate 16 03/21/25 23:35 Blood Pressure 134/99 H 03/21/25 23:35 Pulse Oximetry 99 03/21/25 23:35 Oxygen Delivery Room Air 03/21/25 20:11 MDM - Chest Pain MDM Narrative Medical decision making narrative: Patient presented to ED with 1 hour episode left-sided chest pain that began today. Associated with tingling in left arm. Vital signs are stable upon arrival. Patient neurovascularly intact. EKG with incomplete RBBB, no significant concerning ischemic changes. No records to compare to. Baseline trop undetectable. Chest x-ray is clear. Basic laboratory studies are otherwise unremarkable. HEART score =4 RFs: age, ekg, smoking, fhx, moderately suspicious story 3 hour troponin also undetectable. Patient denied change in sx's after 1 NTG. He later reported burning sensation in chest. Given GI cocktail with improvement of sx's. Low suspicion for ACS at this time. Discussed HEART score/admission for further cardiac w/u. Utilized shared decision making with patient and family. He adamantly does not want to be admitted at this time. He feels comfortable going home. He states he will follow-up with his primary care doctor and be referred to Cardiology. Advised he will likely need a stress test for further evaluation. Discussed risks and benefits of admission versus discharge, patient voiced understanding. He would prefer to go home. Patient given strict return precautions should symptoms continue or worsen. He is in agreement with plan. Discharged in stable condition. Medical Records Data Attestation: I reviewed the patient's medical records. Lab Data Attestation: I reviewed the patient's lab results. 03/21/25 18:35 03/21/25 18:35 Labs: Lab Results 03/21/25 03/21/25 Range/Units 18:35 21:33 WBC 7.6 (4.5-10.0) K/mm3 RBC 4.85 (4.6-6.20) M/mm3 Hgb 16.0 (14.0-18.0) g/dL Hct 47.8 (42.0-52.0) % MCV 98.6 (80-100) fl MCH 33.0 (26-34) pg MCHC 33.5 (32-36) g/dl RDW 13.1 (11.5-14.5) % Plt Count 253 (150-375) k/mm3 MPV 9.6 (7.4-10.4) fl Immature Gran % (Auto) 0.4 (0-0.5) % Neut % (Auto) 65.5 (45.5-73.1) % Lymph % (Auto) 18.8 (18.3-44.2) % [place] % (Auto) 9.3 H (2.6-8.5) % Eos % (Auto) 4.6 H (0-4.4) % Baso % (Auto) 1.4 H (0.2-1.2) % Lymph # (Auto) 1.43 (0.9-3.2) K/mm3 [place] # (Auto) 0.7 H (0.1-0.6) K/mm3 Eos # (Auto) 0.4 H (0-0.3) K/mm3 Baso # (Auto) 0.1 (0.0-0.1) K/mm3 Abs Immat Gran (auto) 0.03 (0.00-0.031) K/mm3 Absolute Neuts (auto) 5.0 (1.3-6.7) K/mm3 Absolute Nucleated RBC 0.000 (0.0-0.012) K/mm3 Nucleated RBC % 0.0 (0.0-0.2) % PT 12.9 (11.1-14.7) Seconds INR 0.9 APTT 27.9 (22.3-36.8) Seconds Sodium 137 (137-145) mmol/L Potassium 4.3 (3.4-5.0) mmol/L Chloride 100 (98-107) mmol/L Carbon Dioxide 28 (22-30) mmol/L Anion Gap 9 (4-12) mmol/L BUN 9 (9-20) mg/dL Creatinine 0.76 (0.7-1.3) mg/dL Estim Creat Clear Calc Not Reportable Estimated GFR > 60 (59 - ) Glucose 132 H (65-110) mg/dL Calcium 9.1 (8.4-10.2) mg/dL Total Bilirubin 0.5 (0.2-1.3) mg/dL AST 38 (17-59) U/L ALT 28 (6-50) U/L Alkaline Phosphatase 96 (38-126) U/L Troponin I < 0.012 < 0.012 (0.000-0.034) ng/mL Total Protein 8.0 (6.3-8.2) g/dL Albumin 4.8 (3.5-5.1) g/dL Lipase 81 (23-300) U/L Imaging Data Attestation: I personally reviewed and interpreted this imaging study as follows: Radiologist's impression: ITS Impressions Chest X-Ray 03/21/25 19:10 IMPRESSION: No acute cardiopulmonary process. ECG Data EKG #1: Attestation: I personally reviewed and interpreted this ECG as follows: ECG completion date: 03/21/25 ECG completion time: 18:28 EKG Interpretation: normal rate (81), sinus rhythm, non-specific ST changes, RBBB (incomplete) and other (baseline wander) Discharge Plan Discharge Clinical Impression: Atypical chest pain, Paresthesia of left arm Patient Disposition: Home Condition: Stable Instructions: Antibiotic Form, Angina (ED), Chest Pain (ED) Additional Instructions: Follow-up closely with your primary care doctor and Cardiology for further evaluation and outpatient stress testing. Call offices tomorrow to make appointment. Return to the ED immediately if you experience recurrent chest pain, pain radiating to your back/arm/neck/jaw, difficulty breathing or feeling short of breath, severe dizziness, passing out, pain or swelling in your legs, unable to keep down food or drink, or any other symptoms of concern. Patient Language: Wolof Prescriptions: No Action propranolol 20 mg tablet 20 mg PO BID Follow-up/Referrals: Owen,Fidel Gonzales MD [Primary Care Provider] - Adebayo Salamanca DO [Physician] - (CARDIOLOGY) Time of Disposition: 23:17 Quality HEART score for chest pain patients History: moderately suspicious ECG: non specific repolarization disturbance/LBTB/PM Age: > 45 and < 65 years Risk factors: 1 or 2 risk factors Troponin: < or = to 1x normal limit Heart score: 4
[2025-03-21] MEDS: NITROGLYCERIN SL 0.4 MG TABLET SUBLINGUAL (21:12)
[2025-03-21 22:00] LABS: Troponin I < 0.012 ng/mL (0.000-0.034)
[2025-03-21] MEDS: BELLADONNA ALK/PHENOB ELIX 10 ML, MAG HYDROX/ALUMINUM HYD/SIMETH 30 ML, LIDOCAINE 2% VI... PO (22:41)
--- NOTE | 2025-03-21 22:42 | ECG_ITS ---
Test Date: 2025-03-21 22:47:42 Measurements Intervals [place] Rate: 73 P: 59 MN: 180 QRS: 0 QRSD: 107 T: 46 QT: 397 QTc: 439 Interpretive Statements SINUS RHYTHM LOW QRS VOLTAGE IN PRECORDIAL LEADS [QRS DEFLECTION < 1.0 mV IN CHEST LEADS] INCOMPLETE RIGHT BUNDLE BRANCH BLOCK [90+ ms QRS DURATION, TERMINAL R IN V1/V2, 40+ ms S IN I/aVL/V4/V5/V6] Compared to ECG 03/21/2025 18:28:35 ST (T wave) deviation no longer present Electronically Signed On 03-22-2025 06:45:10 CDT by Izzy Suarez M.D.
[2025-03-21 22:43] VITALS: BP 128/94; PULSE 82; RESP 14; O2SAT 99
[2025-03-21 23:35] VITALS: BP 134/99; PULSE 73; RESP 16; TEMP 36.6; O2SAT 99
== END 2025-03-21 23:37 | disposition home or self-care (01) ==
PROVIDERS: Emergency Medicine; Emergency Provider Physician Assistant; PCP Internal Medicine
DX: R07.89 Other chest pain (principal); R20.2 Paresthesia of skin; F17.210 Nicotine dependence, cigarettes, uncomplicated
CPT/HCPCS: 36415; 71046; 80053; 83690; 84484; 85025; 85610; 85730; 93005; 99284; A9270

== ENCOUNTER 2025-04-03 14:43 | Emergency (ER) | payer OTHER, SELFPAY ==
--- NOTE | ~2025-04-03 | XR_ITS ---
XR chest 2V Ordering provider: Anny Billy MD History: 54 years Male with . cp . Comparison: March 21, 2025. FINDINGS: MEDIASTINUM: The cardiac silhouette is not enlarged. LUNGS: No infiltrates, effusions or pneumothorax. OTHER: No free air under the diaphragm. Degenerative the spine. IMPRESSION: No acute cardiopulmonary pathology. Reviewed, dictated and finalized at location A.
--- OUTSIDE RECORDS SUMMARY | 2025-04-03 14:45 | XMS_ITS | Referral Summary ---
Author Organization [facility] Address [address] [place] [id number] Care Team Providers Care Photoengraving Apprentice Name Role Phone Fidel Weaver MD Primary [...] on file Legal Sex Male 9:26 AM BELT POLISHER Gender Identity Not on file Sexual Orientation Not on file Last Filed Vital Signs Vital Sign Reading Time Taken Comments Blood Pressure 120/80 10/29/2024 3:59 PM BELT POLISHER Pulse 73 10/29/2024 3:59 PM BELT POLISHER Temperature - - Respiratory Rate - - Oxygen Saturation 98% 10/29/2024 3:59 PM BELT POLISHER Inhaled Oxygen Concentration - - Weight 68.9 kg (152 lb) 10/29/2024 3:59 PM BELT POLISHER Height 180.3 cm (5' 11 ) 10/29/2024 3:59 PM BELT POLISHER Body Mass Index 21.2 10/29/2024 3:59 PM BELT POLISHER Plan of Treatment Not on file Insurance [employer] Member Subscriber Plan / Payer (Ef fective 2024-Present) Name:Isai Hunt V Relation to Subscriber:Self Name:Isai Hunt V Payer ID:[id number] (NAIC) Group ID:[id number] Type:Joota HMO/PPO Address: [facility] [id number] [place] [address] Care Teams Photoengraving Apprentice Relationship Specialty Start Date End Date Fidel Weaver MD [address] [facility] [place] [address] PCP - General Internal Medicine 07/10/24
--- OUTSIDE RECORDS SUMMARY | 2025-04-03 14:45 | XMS_ITS | Clinical Summary ---
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 Gender Identity Not on file Sexual Orientation Not on file Obstetrics History Last Filed Vital Signs Vital Sign Reading Time Taken Comments Blood Pressure 120/80 10/29/2024 3:59 PM HYDRAULIC JACK OPERATOR Pulse 73 10/29/2024 3:59 PM HYDRAULIC JACK OPERATOR Temperature - - Respiratory Rate - - Oxygen Saturation 98% 10/29/2024 3:59 PM HYDRAULIC JACK OPERATOR Inhaled Oxygen Concentration - - Weight 68.9 kg (152 lb) 10/29/2024 3:59 PM HYDRAULIC JACK OPERATOR Height 180.3 cm (5' 11 ) 10/29/2024 3:59 PM HYDRAULIC JACK OPERATOR Body Mass Index 21.2 10/29/2024 3:59 PM HYDRAULIC JACK OPERATOR Plan of Treatment Health Maintenance Due [...] 04/05/2021 Influenza Vaccine (Season Ended) 2025 Insurance [employer] Member Subscriber Plan / Payer (Ef fective 2024-Present) Name:Isai Hunt V Relation to Subscriber:Self Name:sIai Hunt V Payer ID:[id number] (NAIC) Group ID:[id number] Type:[employer] HMO/PPO Address: [facility] [id number] [place] [address] Care Teams Teacher Relationship Specialty Start Date End Date Fidel Weaver MD [address] [facility] [place] [address] PCP - General Internal Medicine 07/10/24
--- OUTSIDE RECORDS SUMMARY | 2025-04-03 14:45 | XMS_ITS | Clinical Summary ---
Author Organization [facility] Care Team Providers Care Pot Firer Name Role Phone Unavailable Primary Care Provider [...]
--- OUTSIDE RECORDS SUMMARY | 2025-04-03 14:45 | XMS_ITS | Data Portability ---
Author Organization [place] [facility] [employer], Main Office Address [address] [place] [address] Care Team Providers Care Glass Toughening Operator Name Role Phone GAUTAM WEAVER Primary Care Provider [phone] Assessment No assessment recorded. Plan of Treatment Reminders Order Date Submit Date Provider Last Modified By Organization Details Last Modified Time Details Appointments Any 10 2024 04:10P M Gautam Weaver MD Not available Not available Not available Lab magnesiu m, serum or plasma 2023 024 [email or web address] [facility], [address] [place], [address], 04/09/2024 09:42:28 vitamin B12, serum 2023 024 [email or web address] [facility], [address] [place], [address], 04/09/2024 09:42:28 PSA, serum or plasma 2023 024 [facility], [address] [place], [address], 04/09/2024 09:42:28 CMP, serum or plasma 2023 024 [facility], [address] [place], [address], 04/09/2024 09:42:27 CBC w/ auto diff 2023 024 [email or web address] [facility], [address] [place], [address], 04/09/2024 09:42:28 lipid panel, serum 2023 024 [facility], [address] [place], [address], 04/09/2024 09:42:28 Referral None recorded . Procedures None recorded . Surgeries None recorded . Imaging None recorded . Medication Orders None recorded . Patient TargetsNo targets recorded. Patient Instructions Encounter Date Encounter Id Patient Instructions Last Modified By Organization Details Last Modified Time 03/30/2024 [id number] risk assessment* [email or web address] Not availabl e 03/30/2024 17:22:56 INFLUENZA VACCIN [...] SCREENING Not indicated GLUCOSE SCREENING LIPID SCREENING [email or web address] Not available 03/30/2024 17:16:48 Well patient evaluation [...] with voice recognition software. Occasional wrong-word or [id number] substitutions may have occurred due to the inherent limitations of voice recognition software. Read the chart carefully and recognize, using context, where substitutions have occurred. [email or web address] Not available 03/30/2024 17:22:37 Reason for Referral None Reported. Results Created Date Observation Date Name Description Value Unit Range Abnormal Flag Note LastModifiedBy Organization Detail LastModifiedTime 04/23/20 24 04/23/2024 CBC/C OMPLE TE BLD COUNT W/DIF F white blood cells 7.6 x10'3 /uL 4.2-10 .8 Not Available [facility] (Lab) [address] [place], [address], 04/23/2024 10:18:40 04/23/20 24 04/23/2024 CBC/C OMPLE TE BLD COUNT W/DIF F red blood cells 4.59 x10'6 /uL 4.10-5 .80 Not Available [facility] (Lab) [address] [place], [address], 04/23/2024 10:18:40 04/23/20 24 04/23/2024 CBC/C OMPLE TE BLD COUNT W/DIF F hemoglobin 15.8 g/dL 13.2-1 7.0 Not Available [facility] (Lab) [address] [place], [address], 04/23/2024 10:18:40 04/23/20 24 04/23/2024 CBC/C OMPLE TE BLD COUNT W/DIF F hematocrit 44.8 % 39.3-5 0.0 Not Available [facility] (Lab) [address] [place], [address], 04/23/2024 10:18:40 04/23/20 24 04/23/2024 CBC/C OMPLE TE BLD COUNT W/DIF F mean red cell volume 97.6 fL 80.0-9 7.0 high Not Available [facility] (Lab) [address] [place], [address], 04/23/2024 10:18:40 04/23/20 24 04/23/2024 CBC/C OMPLE TE BLD COUNT W/DIF F mean red cell hemoglobin 34.4 pg 27.0-3 3.0 high Not Available [facility] (Lab) [address] [place], [address], 04/23/2024 10:18:40 04/23/20 24 04/23/2024 CBC/C OMPLE TE BLD COUNT W/DIF F mean RBC HGB concentratio n 35.3 g/dL 31.0-3 6.0 Not Available [facility] (Lab) [address] [place], [address], 04/23/2024 10:18:40 04/23/20 24 04/23/2024 CBC/C OMPLE TE BLD COUNT W/DIF F red cell distribution width 13.3 % 11.8-1 5.5 Not Available [facility] (Lab) [address] [place], [address], 04/23/2024 10:18:40 04/23/20 24 04/23/2024 CBC/C OMPLE TE BLD COUNT W/DIF F platelets 240 x10'3 /uL 150-40 0 Not Available [facility] (Lab) [address] [place], [address], 04/23/2024 10:18:40 04/23/20 24 04/23/2024 CBC/C OMPLE TE BLD COUNT W/DIF F mean platelet volume 10.4 fL 9.0-12 .4 Not Available [facility] (Lab) [address] [place], [address], 04/23/2024 10:18:40 04/23/20 24 04/23/2024 CBC/C OMPLE TE BLD COUNT W/DIF F neutrophils 65.9 % 39.0-7 2.0 Not Available [facility] (Lab) [address] [place], [address], 04/23/2024 10:18:40 04/23/20 24 04/23/2024 CBC/C OMPLE TE BLD COUNT W/DIF F lymphocytes 19.3 % 16.0-4 7.0 Not Available [facility] (Lab) [address] [place], [address], 04/23/2024 10:18:40 04/23/20 24 04/23/2024 CBC/C OMPLE TE BLD COUNT W/DIF F monocytes 10.0 % 5.0-12 .0 Not Available [facility] (Lab) [address] [place], [address], 04/23/2024 10:18:40 04/23/20 24 04/23/2024 CBC/C OMPLE TE BLD COUNT W/DIF F eosinophils 3.2 % 1.0-7. 0 Not Available [facility] (Lab) [address] [place], [address], 04/23/2024 10:18:40 04/23/20 24 04/23/2024 CBC/C OMPLE TE BLD COUNT W/DIF F basophils 0.9 % 0.0-2. 0 Not Available [facility] (Lab) [address] [place], [address], 04/23/2024 10:18:40 04/23/20 24 04/23/2024 CBC/C OMPLE TE BLD COUNT W/DIF F immature granulocytes 0.7 % 0.00-0 .50 high Not Available [facility] (Lab) [address] [place], [address], 04/23/2024 10:18:40 04/23/20 24 04/23/2024 CBC/C OMPLE TE BLD COUNT W/DIF F neutrophils, absolute count 4.99 x10'3 /uL 1.5-8. 0 Not Available [facility] (Lab) [address] [place], [address], 04/23/2024 10:18:40 04/23/20 24 04/23/2024 CBC/C OMPLE TE BLD COUNT W/DIF F lymphocytes, absolute count 1.46 x10'3 /uL 1.07-3 .43 Not Available [facility] (Lab) [address] [place], [address], 04/23/2024 10:18:40 04/23/20 24 04/23/2024 CBC/C OMPLE TE BLD COUNT W/DIF F monocytes, absolute count 0.76 x10'3 /uL 0.29-0 .99 Not Available [facility] (Lab) [address] [place], [address], 04/23/2024 10:18:40 04/23/20 24 04/23/2024 CBC/C OMPLE TE BLD COUNT W/DIF F eosinophils, absolute count 0.24 x10'3 /uL 0.02-0 .53 Not Available [facility] (Lab) [address] [place], [address], 04/23/2024 10:18:40 04/23/20 24 04/23/2024 CBC/C OMPLE TE BLD COUNT W/DIF F basophils, absolute count 0.07 x10'3 /uL 0.01-0 .08 Not Available [facility] (Lab) [address] [place], [address], 04/23/2024 10:18:40 04/23/20 24 04/23/2024 CBC/C OMPLE TE BLD COUNT W/DIF F immature granulocytes ,absolute 0.05 x10'3 /uL 0.00-0 .05 Not Available [facility] (Lab) [address] [place], [address], 04/23/2024 10:18:40 04/23/20 24 04/23/2024 CBC/C OMPLE TE BLD COUNT W/DIF F nucleated red blood cells 0.0 % -0 Not Available [facility] (Lab) [address] [place], [address], 04/23/2024 10:18:40 04/23/20 24 04/23/2024 CBC/C OMPLE TE BLD COUNT W/DIF F NRBC# 0.00 x10'3 /uL Not Available [facility] (Lab) [address] [place], [address], 04/23/2024 10:18:40 04/23/20 24 04/23/2024 COMPR EHENS BLAYNE METAB OLIC PANEL sodium 138 mmol/ L 137-14 5 Not Available [facility] (Lab) [address] [place], [address], 04/23/2024 10:28:59 04/23/20 24 04/23/2024 COMPR EHENS BLAYNE METAB OLIC PANEL potassium 4.8 mmol/ L 3.5-5. 1 Not Available [facility] (Lab) [address] [place], [address], 04/23/2024 10:28:59 04/23/20 24 04/23/2024 COMPR EHENS BLAYNE METAB OLIC PANEL chloride 106 mmol/ L 98-107 Not Available [facility] (Lab) [address] [place], [address], 04/23/2024 10:28:59 04/23/20 24 04/23/2024 COMPR EHENS BLAYNE METAB OLIC PANEL carbon dioxide 28 mmol/ L 22-30 Not Available [facility] (Lab) [address] [place], [address], 04/23/2024 10:28:59 04/23/20 24 04/23/2024 COMPR EHENS BLAYNE METAB OLIC PANEL anion gap 8.8 mmol/ L 14-22 low Not Available [facility] (Lab) [address] [place], [address], 04/23/2024 10:28:59 04/23/20 24 04/23/2024 COMPR EHENS BLAYNE METAB OLIC PANEL glucose 102 mg/dL 70-99 high Not Available [facility] (Lab) [address] [place], [address], 04/23/2024 10:28:59 04/23/20 24 04/23/2024 COMPR EHENS BLAYNE METAB OLIC PANEL BUN 11 mg/dL 8-19 Not Available [facility] (Lab) [address] [place], [address], 04/23/2024 10:28:59 04/23/20 24 04/23/2024 COMPR EHENS BLAYNE METAB OLIC PANEL creatinine 0.83 mg/dL 0.66-1 .25 Not Available [facility] (Lab) [address] [place], [address], 04/23/2024 10:28:59 04/23/20 24 04/23/2024 COMPR EHENS BLAYNE METAB OLIC PANEL GFR >60 Refer ence Range : [place] ge GFR Healt hy Adult : >60 [...] calcu lator is avail able on the [facility] websi te: https ://mae w.yvette oneal.o rg/pr ofess ional s/kdo qi/gf r_cal culat or Not Available [facility] (Lab) [address] [facility] [place], [address], 04/23/2024 10:28:59 04/23/20 24 04/23/2024 COMPR EHENS BLAYNE METAB OLIC PANEL alkaline phosphatase 91 U/L 38-126 Not Available [facility] (Lab) [address] [place], [address], 04/23/2024 10:28:59 04/23/20 24 04/23/2024 COMPR EHENS BLAYNE METAB OLIC PANEL alanine aminotransfe rase 28 U/L 0-50 Not Available [facility] (Lab) [address] [place], [address], 04/23/2024 10:28:59 04/23/20 24 04/23/2024 COMPR EHENS BLAYNE METAB OLIC PANEL aspartate aminotransfe rase 41 U/L 15-46 Not Available [facility] (Lab) [address] [place], [address], 04/23/2024 10:28:59 04/23/20 24 04/23/2024 COMPR EHENS BLAYNE METAB OLIC PANEL bilirubin, total 0.90 mg/dL 0.20-1 .30 Not Available [facility] (Lab) [address] [place], [address], 04/23/2024 10:28:59 04/23/20 24 04/23/2024 COMPR EHENS BLAYNE METAB OLIC PANEL calcium 9.7 mg/dL 8.4-10 .2 Not Available [facility] (Lab) [address] [place], [address], 04/23/2024 10:28:59 04/23/20 24 04/23/2024 COMPR EHENS BLAYNE METAB OLIC PANEL total protein 7.5 g/dL 6.3-8. 2 Not Available [facility] (Lab) [address] [place], [address], 04/23/2024 10:28:59 04/23/20 24 04/23/2024 COMPR EHENS BLAYNE METAB OLIC PANEL albumin 4.3 g/dL 3.4-5. 0 Not Available [facility] (Lab) [address] [place], [address], 04/23/2024 10:28:59 04/23/20 24 04/23/2024 COMPR EHENS BLAYNE METAB OLIC PANEL globulin 3.2 g/dL 2.6-4. 2 Not Available [facility] (Lab) [address] [place], [address], 04/23/2024 10:28:59 04/23/20 24 04/23/2024 COMPR EHENS BLAYNE METAB OLIC PANEL A/G ratio 1.3 ratio 1.0-2. 0 Not Available [facility] (Lab) [address] [place], [address], 04/23/2024 10:28:59 04/23/20 24 04/23/2024 LIPID PANEL cholesterol 214 mg/dL 140-19 9 high NIH ANNMARIE NSUS RECOM MENDA TION FOR HERMAN STERO L: ADULT CHILD LOW RISK: <200 <170 BORDE RLINE : <200- 239 ----- HIGH RISK: >240 >200 Not Available [facility] (Lab) [address] [place], [address], 04/23/2024 10:29:04 04/23/20 24 04/23/2024 LIPID PANEL triglyceride s 145 mg/dL 0-150 NIH ANNMARIE NSUS REPOR T RECOM MENDA TION FOR TRIGL YCERI GARETH: ADULT CHILD LOW RISK: <150 ----- BODER LINE: 150-1 99 ----- HIGH RISK: >200 ----- Not Available [facility] (Lab) [address] [place], [address], 04/23/2024 10:29:04 04/23/20 24 04/23/2024 LIPID PANEL HDL cholesterol 56 mg/dL 40- Not Available [facility] (Lab) [address] [place], [address], 04/23/2024 10:29:04 04/23/20 24 04/23/2024 LIPID PANEL [...] WILL NOT BE REPOR CASSANDRA. Not Available [facility] (Lab) [address] [place], [address], 04/23/2024 10:29:04 04/23/20 24 04/23/2024 MAGNE SIUM magnesium 2.3 mg/dL 1.6-2. 3 Not Available [facility] (Lab) [address] [place], [address], 04/23/2024 10:29:09 04/23/20 24 04/23/2024 PSA, TOTAL PSA, total 0.58 NG/mL 0.00-4 .00 Not Available [facility] (Lab) [address] [place], [address], 04/23/2024 11:01:32 04/23/20 24 04/23/2024 VITAM IN B12 (NEO BENTON ) vb12 528 pg/mL 239-93 1 Not Available [facility] (Lab) [address] [place], [address], 04/23/2024 11:28:39 07/04/20 22 04/04/2015 colon oscop y scree jessica (PROC ) No observ ation record ed. [id number] Not Available 01/16/2023 08:14:18 03/21/20 25 03/21/2025 XR, chest No observ ation record ed. [address], [place], [address], 03/22/2025 06:52:13 Result Notes None recorded. Problems Name Problem SNOMED Code Status Onset Date Resolution Date Notes Provider Name and Address Organization Details Recorded Time Generaliz ed headache 735084973 Active Not Available [facility] 3 08:09:30 Dupuytren 's disease of palm 516913021 Active 2017 Not Available [facility] 3 08:09:30 Gastroeso phageal reflux disease 189623401 Active Not Available [facility] 3 08:09:30 Headache 21874468 Active Not Available [facility] 3 08:09:30 Carpal tunnel syndrome of left wrist 14580110739 9102 Completed 201904/22/2020 Not Available [facility] 3 08:09:30 Disorder of prostate 72157398 Active 2021 Not Available [facility] 3 08:09:30 Dysphagia 16458366 Active 2021 Not Available [facility] 3 08:09:30 Carpal tunnel syndrome 78695022 Active 2017 Not Available [facility] 3 08:09:30 Hemoptysi s 16990048 Active Not Available [facility] 3 08:09:30 Sleep apnea 18281717 Active 2021 Not Available [facility] 3 08:09:30 Obstructi ve sleep apnea syndrome 86429168 Active 2021 Not Available [facility] 3 08:09:30 Breast lump 40933751 Active Not Available [facility] 3 08:09:31 Dental abscess 451369826 Active 2023 Gautam Weaver MD [address] [facility] [address], [place], [address] , [place] [facility] 4 14:38:14 Tremor 48479644 Active 2023 Mabel Jose CMA null, [place] [facility] 14:18:59 Problem Notes None recorded. Procedures Surgical History None recorded. Imaging Results Imaging Date Name Status LastModified by Organiz ation Details LastModified Time 04/04/2015 colonoscopy screening (PROC) completed [id number] Information not available 01/16/2023 08:14:18 03/21/2025 XR, chest completed [address], [place], [address], 03/22/2025 06:52:13 Procedure Notes None recorded. Medical Equipment None [...] % 94 % 82 /min 96.7 [degF] 83784.8 9 g 150 mm[Hg] 80 mm[Hg] Not Available [facility] 3 08:06:52 Date Recorded Body mass index (BMI) Body height Oxygen saturation Oxygen saturation in Arterial blood by Pulse oximetry Heart rate Respiratory rate Body temperature Body weight Systolic blood pressure Diastolic blood pressure Provider Name and Address Organization Details Last Updated DateTime 2 22.4 kg/m2 182.88 cm 97 % 97 % 84 /min 12 /min 97.2 [degF] 22380.7 4 g 134 mm[Hg] 86 mm[Hg] Not Available [facility] 3 08:06:52 Date Recorded Body height Body mass index (BMI) Body weight Heart rate Body temperature Oxygen saturation Oxygen saturation in Arterial blood by Pulse oximetry Systolic blood pressure Diastolic blood pressure Provider Name and Address Organization Details Last Updated DateTime 4 182.88 cm 22.8 kg/m2 01738.5 2 g 80 /min 98.1 [degF] 98 % 98 % 126 mm[Hg] 82 mm[Hg] JOSE ANTONIO [place] [facility] 4 17:11:38 Social History None recorded. Functional Status None recorded. Mental Status None recorded. Family History Nothing Reported Notes:Father living at 76 HD, CABG and stents. Mother 68 gastric cancer Has one brother with Diabetes Type I Maternal GF age 76, hx of throat cancer Medical History Condition Response BLINDNESS N NERVE DISEASE N RHEUMATIC FEVER N BLADDER PROBLEMS N KIDNEY STONES N MRSA N OTHER # 1 N POLIO N LUNG DISEASE/DISORDER N RADIATION / CHEMOTHERAPY N COPD N Other # 2 N BLOOD DISEASES N SURGERY N EAR OR HEARING PROBLEMS N MUMPS N BOWEL PROBLEMS N DEPRESSION (INCLUDING POST ) N STROKE/TIA N ULCERS N BENIGN PROSTATIC [...] INSOMNIA N HIGH CHOLESTEROL / HYPERLIPIDEMIA N HYPERTHYROIDISM N EYE PROBLEMS N NEUROLOGICAL PROBLEMS N EDEMA N CHRONIC PAIN SYNDROME N HYPOTHYROIDISM N CONSTIPATION N CAROTID BLOCKAGE N BACK / NECK PROBLEMS N HAVE YOU BEEN HOSPITALIZED OR SEEN IN [facility] IN THE PAST YEAR ? N ATHEROSCLEROSIS N BREAST PROBLEMS Y DIALYSIS N ECZEMA N OSTEOPOROSIS N ARTHRITIS N NO SIGNIFICANT PAST MEDICAL HISTORY N APPENDICITIS N DIABETES, TYPE N BAD TEETH N ENT N HEARTBURN / REFLUX N AUTISM SPECTRUM DISORDER (ASD) N HEPATITIS / LIVER DISEASE N GOUT N SLEEP DISORDER N ALZHEIMER'S DISEASE N Brain Problems N HERPES N DEMENTIA N SEIZURES/EPILEPSY N HEADACHES/MIGRAINES Y VASCULAR DISEASE N PACEMAKER N Blood Disorder N DIZZINESS N KIDNEY DISEASE N HEART DISEASE/HEART PROBLEMS N MULTIPLE SCLEROSIS N CARDIAC ARRHYTHMIA N CANCER: SPECIFY N Gall Stones N ATRIAL FIBRILLATION N PULMONARY EMBOLISM N AUTOIMMUNE DISEASE N Past Encounters Encounter ID Performer Location Encounter Start Date Encounter Closed Date Diagnosis/Indication Diagnosis SNOMED-CT Code Diagnosis ICD10 Code Diagnosis Note [id number] Gautam Weaver MD [facility] Internal Med [facility] [address] [facility] [address], [place] [address] 07/03/2022 00:00:00 07/03/2022 17:02:37 [id number] Gautam Weaver MD [facility] Internal Med [facility] [address] [address] 07/30/2022 00:00:00 07/30/2022 17:03:31 [id number] Gautam Weaver MD [facility] Internal Med [facility] [address] [address] 03/30/2024 17:06:10 03/30/2024 17:35:22 Adult health examination 553607975 Z00.00 Depression screening 171 946723 Z13.31 Gastroesop hageal reflux disease 550628422 K21.9 Disorder of prostate 302 34383 N42.9 Health Concerns Section Related Observation LastModified by Organization Detai ls LastModified Time None Recorded Concern Status LastModified by Organization Details LastModified Time None Recorded Advance Directives Directive None Recorded Payers Encounter Date Sequence Insurance Name Policy Number Policy Palma Covered Member ID Palma Member ID Guarantor Name 03/30/2024 1 [facility] (O) Isia Hunt [id number] Isai Hunt
--- NOTE | 2025-04-03 14:48 | ECG_ITS ---
Test Date: 2025-04-03 14:53:48 Measurements Intervals [place] Rate: 70 P: 62 AK: 166 QRS: 8 QRSD: 117 T: 40 QT: 396 QTc: 428 Interpretive Statements SINUS RHYTHM INCOMPLETE RIGHT BUNDLE BRANCH BLOCK [90+ ms QRS DURATION, TERMINAL R IN V1/V2, 40+ ms S IN I/aVL/V4/V5/V6] ABNORMAL ECG Compared to ECG 03/21/2025 22:47:42 No significant changes Electronically Signed On 04-03-2025 16:16:52 CDT by Rai Gutierrez M.D.
[2025-04-03 14:56] VITALS: BP 151/88; PULSE 72; RESP 18; TEMP 36.1; O2SAT 100
[2025-04-03 15:08] LABS: Basophils Absolute Auto 0.1 K/mm3 (0.0-0.1); Basophils Percent Auto 1.2 % (0.2-1.2); Eosinophils Absolute Auto 0.3 K/mm3 (0-0.3); Eosinophils Percent Auto 4.1 % (0-4.4); Hematocrit 45.4 % (42.0-52.0); Hemoglobin 15.4 g/dL (14.0-18.0); Immature Granulocyte Absolute 0.03 K/mm3 (0.00-0.031); Immature Granulocyte Percent A 0.4 % (0-0.5); Lymphocytes Percent Auto 23.2 % (18.3-44.2); Mean Corpuscular HGB Conc 33.9 g/dl (32-36); Mean Corpuscular Hemoglobin 33.4 pg (26-34); Mean Corpuscular Volume 98.5 fl (80-100); Mean Platelet Volume 9.7 fl (7.4-10.4); Monocytes Absolute Auto 0.6 K/mm3 (0.1-0.6); Neutrophils Absolute Auto 4.3 K/mm3 (1.3-6.7); Neutrophils Percent Auto 62.1 % (45.5-73.1); Platelet Count Result 210 k/mm3 (150-375); Red Blood Count 4.61 M/mm3 (4.6-6.20); White Blood Count 6.9 K/mm3 (4.5-10.0)
[2025-04-03 15:17] LABS: Alanine Aminotransferase 35 U/L (6-50); Albumin Level 4.4 g/dL (3.5-5.1); Alkaline Phosphatase 78 U/L (38-126); Anion Gap 4 mmol/L (4-12); Aspartate Amino Transferase 51 U/L (17-59); Bilirubin,Total 0.6 mg/dL (0.2-1.3); Blood Urea Nitrogen 13 mg/dL (9-20); Calcium 9.1 mg/dL (8.4-10.2); Carbon Dioxide 28 mmol/L (22-30); Chloride 103 mmol/L (98-107); Estimated CRCL calculation 84 ml/min; Estimated Glomerular Filt Rate > 60; Glucose 123 mg/dL (65-110); Lipase 96 U/L (23-300); Potassium 4.5 mmol/L (3.4-5.0); Sodium 135 mmol/L (137-145)
[2025-04-03 15:19] LABS: INR 0.9; Prothrombin Time 12.7 Seconds (11.1-14.7)
[2025-04-03 15:20] LABS: Partial Thromboplastin Time 27.8 Seconds (22.3-36.8)
[2025-04-03 15:29] LABS: Troponin I < 0.012 ng/mL (0.000-0.034)
--- NOTE | 2025-04-03 16:19 | ED_ITS ---
HPI - Chest Pain General Chief Complaint: Chest Pain Stated Complaint: left arm is going to sleep x 1 week, dizzy, cp Time Seen by Provider: 04/03/25 16:19 Focused HPI: This is a 54 year old male that presents to the ER for chest pains ongoing since this morning. Reports the pain is sharp in nature. Reports associated tingling in his left arm. Reports he was seen for this a couple of weeks ago for this complaint and discharged. He was supposed to make an appointment for an outpatient stress test and he forgot. No known history of CAD. Reports family history of CAD. He is a smoker. GENERAL: Well-appearing, well-nourished, and in no acute distress. HEAD: Normocephalic, atraumatic. CHEST: Clear to auscultation. No respiratory distress. HEART: Regular rate and rhythm. NEURO: Alert and oriented x3. Patient screened in triage and initial orders placed. Additional care and disposition to be based upon diagnostic testing and treatment. Related Data Home Medications Medication Instructions Recorded Confirmed Last Taken Type propranolol 20 mg tablet 20 mg PO BID 09/14/24 09/21/24 09/19/24 History Allergies Allergy/AdvReac Type Severity Reaction Status Date / Time No Known Allergies Allergy Verified 09/21/24 06:58 Review of Systems 2 Review of Systems: All systems reviewed & are unremarkable except as noted in HPI and below PMFSH Past Medical History Medical History Colon polyp Family history of stomach cancer Social History Social History Smoking packs per day: 1 Smoking cigarettes per day: 20.0 Smoking status: Current every day smoker Tobacco type: cigarettes Alcohol intake: current Living arrangements: alone Spiritual care concerns: No Exam 2 Narrative: GENERAL: Well-appearing, well-nourished, and in no acute distress. HEAD: Normocephalic, atraumatic. EYES: EOMI. CHEST: Clear to auscultation. No respiratory distress. No wheezes rales or rhonchi HEART: Regular rate and rhythm. No murmur heard. Normal peripheral pulses. EXTREMITIES: Normal range of motion. No edema. SKIN: Warm, dry, no rash. NEURO: No focal deficits. Alert and oriented x3. PSYCH: Normal mood and affect Course Course Emergency Course: patient was updated on his workup thus far, he does not wish to stay for any further evaluation or management. Reports he will get his stress test scheduled and follow up as directed at his last visit Vital Signs Vital signs: Vital Signs Temperature 97 F L 04/03/25 14:56 Pulse Rate 72 04/03/25 14:56 Respiratory Rate 18 04/03/25 14:56 Blood Pressure 151/88 H 04/03/25 14:56 Pulse Oximetry 100 04/03/25 14:56 Temperature 97 F L 04/03/25 14:56 Pulse Rate 72 04/03/25 14:56 Respiratory Rate 18 04/03/25 14:56 Blood Pressure 151/88 H 04/03/25 14:56 Pulse Oximetry 100 04/03/25 14:56 MDM - Chest Pain Differential Diagnosis Differential diagnosis: Likely stable angina, atypical chest pain, costochondritis and chest pain Lab Data Attestation: I reviewed the patient's lab results. 04/03/25 15:01 04/03/25 15:01 Labs: Lab Results 04/03/25 Range/Units 15:01 WBC 6.9 (4.5-10.0) K/mm3 RBC 4.61 (4.6-6.20) M/mm3 Hgb 15.4 (14.0-18.0) g/dL Hct 45.4 (42.0-52.0) % MCV 98.5 (80-100) fl MCH 33.4 (26-34) pg MCHC 33.9 (32-36) g/dl RDW 13.0 (11.5-14.5) % Plt Count 210 (150-375) k/mm3 MPV 9.7 (7.4-10.4) fl Immature Gran % (Auto) 0.4 (0-0.5) % Neut % (Auto) 62.1 (45.5-73.1) % Lymph % (Auto) 23.2 (18.3-44.2) % Posey % (Auto) 9.0 H (2.6-8.5) % Eos % (Auto) 4.1 (0-4.4) % Baso % (Auto) 1.2 (0.2-1.2) % Lymph # (Auto) 1.60 (0.9-3.2) K/mm3 Posey # (Auto) 0.6 (0.1-0.6) K/mm3 Eos # (Auto) 0.3 (0-0.3) K/mm3 Baso # (Auto) 0.1 (0.0-0.1) K/mm3 Abs Immat Gran (auto) 0.03 (0.00-0.031) K/mm3 Absolute Neuts (auto) 4.3 (1.3-6.7) K/mm3 Absolute Nucleated RBC 0.000 (0.0-0.012) K/mm3 Nucleated RBC % 0.0 (0.0-0.2) % PT 12.7 (11.1-14.7) Seconds INR 0.9 APTT 27.8 (22.3-36.8) Seconds Sodium 135 L (137-145) mmol/L Potassium 4.5 (3.4-5.0) mmol/L Chloride 103 (98-107) mmol/L Carbon Dioxide 28 (22-30) mmol/L Anion Gap 4 (4-12) mmol/L BUN 13 (9-20) mg/dL Creatinine 0.81 (0.7-1.3) mg/dL Estim Creat Clear Calc 84 ml/min Estimated GFR > 60 (59 - ) Glucose 123 H (65-110) mg/dL Calcium 9.1 (8.4-10.2) mg/dL Total Bilirubin 0.6 (0.2-1.3) mg/dL AST 51 (17-59) U/L ALT 35 (6-50) U/L Alkaline Phosphatase 78 (38-126) U/L Troponin I < 0.012 (0.000-0.034) ng/mL Total Protein 8.0 (6.3-8.2) g/dL Albumin 4.4 (3.5-5.1) g/dL Lipase 96 (23-300) U/L Imaging Data Radiologist's impression: ITS Impressions Chest X-Ray 04/03/25 16:17 IMPRESSION: No acute cardiopulmonary pathology. ECG Data EKG #1: ECG completion date: 04/03/25 EKG Interpretation: normal rate, sinus rhythm and no acute changes (compared to EKG 03/21/25) Critical Care Time Critical Care Time Critical Care Time: No Discharge Plan Discharge Clinical Impression: Chest pain, unspecified Qualifiers: Chest pain type: unspecified Qualified Code(s): R07.9 - Chest pain, unspecified Patient Disposition: Home Condition: Stable Instructions: Chest Pain (ED) Additional Instructions: Return to the Emergency Department if you experience fever, worsening chest pain, shortness of breath, or any other symptoms that are concerning to you Take your home medications as prescribed Follow up with your primary care doctor and schedule your stress test Patient Language: Rwandan Prescriptions: No Action propranolol 20 mg tablet 20 mg PO BID Follow-up/Referrals: Owen,Fidel Gonzales MD [Primary Care Provider] - Quality HEART score for chest pain patients History: slightly suspicious ECG: normal Age: > 45 and < 65 years Risk factors: 1 or 2 risk factors Troponin: < or = to 1x normal limit Heart score: 2
--- OUTSIDE RECORDS SUMMARY | 2025-04-03 16:34 | XMS_ITS | CONTINUITY OF CARE DOCUMENT ---
Author Name joi tamez Address Unknown Organization [facility] Address [address] [address] [place] [address] Phone [phone] Care Team Providers Care Fruit Dryer Name Role Phone Carlos SNYDER, Terence Unavailable [phone] GAUTAM BEYER MD Unavailable [phone] GAUTAM BEYER MD Unavailable PROBLEMS Condition Status Date Provider Notes CHEST PAIN- RECURRENT active Terence Gonzalez MD TOBACCO ABUSE active ? Terence Gonzalez MD SHORTNESS OF BREATH active Terence Hare CORONARY ARTERY DISEASE, FAMILY HX active Ritchie Gonzalez MD ENCOUNTERS Date Type Provider Location Encounter Diag nosis - In-person encounter Office Visit Terence Gonzalez MD [place] [facility] CHEST PAIN- RECURRENTTOBACCO ABUSESHORTNESS OF BREATHCORONARY [...] Ondina Lieberman 5 anion [facility], [facility] [facility] estimated glomerular filtration rate >[address] [facility] 5 calcium, serum 9.0 mg/dL anatoly Mio 5 blood glucose, fasting 93 mg/dL [facility] creatinine, serum 1.11 mg/dL [facility] urea nitrogen, blood 11.4 mg/dL [facility] carbon dioxide, serum, total 27 mmol/L [facility] 5 chloride, serum 103 mmol/L [facility] potassium, serum 4.4 mmol/L [facility] 5 sodium, serum 136 mmol/L [facility] platelet count 243 10*3/uL [facility] red blood cell distribution width 13.6 % [facility] mean corpuscular hemoglobin concentration, RBC 34.3 g/dL anatoly Mio mean corpuscular hemoglobin, RBC [facility] mean corpuscular volume, RBC 93.6 fL [facility]ber[facility] hematocrit, blood 45.5 % [facility] hemoglobin, blood 15.6 g/dL [facility] erythrocyte (RBC) count 4.86 10*6/mm3 [facility] monocytes as percent of blood leukocytes 13.4 % [facility] lymphocytes as percent of blood leukocytes 19.3 % [facility] leukocyte count, blood 8.2 10*3/mm3 [facility] HISTORY OF MEDICATION USE Medication Status [...] or m ore LinkLog smoking status Smoker [facility] MENTAL STATUS Date Observation Value Provider assessment of judgme nt and insight E&M Alert and oriented to time, place and person. Mood and affect are normal. Ha Cantu RN INSURANCE PROVIDERS Payer name Policy type / Coverage type [place] red republican ID [employer] OPEN ACCESS Other [id number] TREATMENT PLAN Date Name Spirometry T3, TOTAL T-4, FREE TSH, 3RD GENERATION COMPREHENSIVE METABO LIC PANEL W/EGFR LIPID PANEL Cardiac Cath - Left - GC
--- OUTSIDE RECORDS SUMMARY | 2025-04-03 16:34 | XMS_ITS | Referral Summary ---
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 Gender Identity Not on file Sexual Orientation Not on file Last Filed Vital Signs Vital Sign Reading Time Taken Comments Blood Pressure 120/80 10/29/2024 3:59 PM SHIRT SORTER Pulse 73 10/29/2024 3:59 PM SHIRT SORTER Temperature - - Respiratory Rate - - Oxygen Saturation 98% 10/29/2024 3:59 PM SHIRT SORTER Inhaled Oxygen Concentration - - Weight 68.9 kg (152 lb) 10/29/2024 3:59 PM SHIRT SORTER Height 180.3 cm (5' 11 ) 10/29/2024 3:59 PM SHIRT SORTER Body Mass Index 21.2 10/29/2024 3:59 PM SHIRT SORTER Plan of Treatment Not on file Insurance [employer] Member Subscriber Plan / Payer (Ef fective 2024-Present) Name:Isai Hunt V Relation to Subscriber:Self Name:Isai Hunt V Payer ID:[id number] (NAIC) Group ID:[id number] Type:[employer] HMO/PPO Address: [facility] [id number] [place] [address] Care Teams Laboratory Sample Carrier Relationship Specialty Start Date End Date Fidel Weaver MD [address] [facility] [place] [address] PCP - General Internal Medicine 07/10/24
--- OUTSIDE RECORDS SUMMARY | 2025-04-03 16:34 | XMS_ITS | Clinical Summary ---
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 Gender Identity Not on file Sexual Orientation Not on file Obstetrics History Last Filed Vital Signs Vital Sign Reading Time Taken Comments Blood Pressure 120/80 10/29/2024 3:59 PM VENEER JOINTER RETURNER Pulse 73 10/29/2024 3:59 PM VENEER JOINTER RETURNER Temperature - - Respiratory Rate - - Oxygen Saturation 98% 10/29/2024 3:59 PM VENEER JOINTER RETURNER Inhaled Oxygen Concentration - - Weight 68.9 kg (152 lb) 10/29/2024 3:59 PM VENEER JOINTER RETURNER Height 180.3 cm (5' 11 ) 10/29/2024 3:59 PM VENEER JOINTER RETURNER Body Mass Index 21.2 10/29/2024 3:59 PM VENEER JOINTER RETURNER Plan of Treatment Health Maintenance Due Date [...] 04/05/2021 Influenza Vaccine (Season Ended) 2025 Insurance [employer] Member Subscriber Plan / Payer (Ef fective 2024-Present) Name:Isai Hunt V Relation to Subscriber:Self Name:Isai Hunt V Payer ID:[id number] (NAIC) Group ID:[id number] Type:[employer] H[employer]/PPO Address: [facility] [id number] [place] [address] Care Teams Storage Battery Charger Relationship Specialty Start Date End Date Fidel Weaver MD [address] [place] [address] PCP - General Internal Medicine 07/10/24
--- OUTSIDE RECORDS SUMMARY | 2025-04-03 16:34 | XMS_ITS | Clinical Summary ---
Author Organization [facility] Care Team Providers Care Medieval English Literature Professor Name Role Phone Unavailable Primary Care Provider [...]
== END 2025-04-03 17:30 | disposition home or self-care (01) ==
LOC: ANHED 16:32
PROVIDERS: Student in an Organized Health Care Education/Training Program; Emergency Provider Physician Assistant; PCP Internal Medicine
DX: R07.9 Chest pain, unspecified (principal); F17.210 Nicotine dependence, cigarettes, uncomplicated
CPT/HCPCS: 36415; 71046; 80053; 83690; 84484; 85025; 85610; 85730; 93005; 99284

== ENCOUNTER 2025-04-23 14:34 | Outpatient (CLI) | payer OTHER, SELFPAY ==
--- NOTE | ~2025-04-23 | US_ITS ---
EXAMINATION: US carotid duplex BI DATE: 04/23/2025 15:16 INDICATION: TIA. TECHNIQUE: Grayscale, color Doppler, and pulsed Doppler images of the cervical carotid arteries were obtained. The degree of vessel stenosis is placed in one of the following categories: normal, <50%, 5 0-69%, >=70% but less than near-occlusion, near-occlusion, or total occlusion. Note that percent sten osis relative to normal distal artery lumen diameter is indirectly measured from velocity measurement s as described by Frantz, et al. Radiology 2003; 229:340-346. Notes: Normal: Peak systolic velocity <125 centimeters/sec and no plaque <50%. Peak systolic velocity <125 ( EDV <40; ICA/CCA PSV ratio <2.0; used these factors only a tandem lesions or low cardiac output or co ntralateral disease) 50-69 %: PSV 125-230 (EDV 40-100; ratio 2-4) >= 70% but less than near occlusion: PSV greater than 230 (EDV > 100; ratio> 4.0) Near Occlusion: PSV that is variable; markedly narrowed lumen Occlusion: Absent flow on color/spectral Doppler and no lumen on lima scale. COMPARISON: None. FINDINGS: RIGHT: The right common carotid artery (CCA) peak systolic velocity (PSV) is 108 cm/s. The right internal ca rotid artery (ICA) PSV is 82 cm/s. The right ICA end-diastolic velocity (EDV) is 34 cm/s. The right I CA/CCA PSV ratio is 0.8. The external carotid artery (ECA) PSV is 107 cm/s. There is antegrade flow i n the right vertebral artery. LEFT: The left CCA PSV is 106 cm/s. The left ICA PSV is 79 cm/s. The left ICA EDV is 27 cm/s. The left ICA/ CCA PSV ratio is 0.7. The ECA PSV is 94 cm/s. There is antegrade flow in the left vertebral artery. IMPRESSION: 1. Less than 50% stenosis in the right internal carotid artery by sonographic criteria. 2. Less than 50% stenosis in the left internal carotid artery by sonographic criteria. Reviewed, dictated and finalized at location A. IMPRESSION: 1. Less than 50% stenosis in the right internal carotid artery by sonographic danie mccarthy. 2. Less than 50% stenosis in the left internal carotid artery by sonographic milly cabezas.
--- NOTE | ~2025-04-23 | CT_ITS ---
EXAMINATION: CT brain wo con DATE: 04/23/2025 14:51 INDICATION: Transient ischemic episode TECHNIQUE: Computed tomography (CT) of the head was performed without intravenous contrast. Sagittal and coronal reconstructions were performed. The mA was adjusted according to patient size. Iterative reconstruction technique was employed. The dose-length product was 599.57 mGy-cm. COMPARISON: head CT dated 07/13/22 FINDINGS: No acute intracranial hemorrhage, acute infarction or abnormal extra axial fluid collection. Ventricl es are normal and symmetric. No mass/mass effect. Mild mucosal thickening at the bilateral ethmoid si nuses. The orbits and mastoid air cells are normal. IMPRESSION: 1. No acute intracranial process. Reviewed, dictated and finalized at location A.
--- NOTE | ~2025-04-23 | XR_ITS ---
EXAM: XR_CERV2-3V_CR DATE: 04/23/2025 14:58 HISTORY: Cervicalgia . COMPARISON: None available. FINDINGS: Craniocervical association and atlantoaxial joint are aligned. No prevertebral soft tissue swelling. Trace retrolisthesis at C5-6. Vertebral body heights are maintained. Mild disc space narro wing at C4-5. Moderate disc space narrowing at C5-6. Mild multilevel facet sclerosis and uncovertebra l joint hypertrophy. IMPRESSION: Multilevel degenerative disc disease, moderate at C5-6. Reviewed, dictated and finalized at location K.
== END 2025-04-23 14:35 | disposition home or self-care (01) ==
LOC: MICIMG 14:34
PROVIDERS: PCP Internal Medicine; Visit Provider Internal Medicine
DX: M50.322 Other cervical disc degeneration at C5-C6 level (principal); I65.23 Occlusion and stenosis of bilateral carotid arteries
CPT/HCPCS: 70450; 72040; 93880